=== PATIENT | female | born 1995 | race Caucasian/White ===

== ENCOUNTER 2023-12-19 14:08 | Outpatient (AMB) | payer OTHER, SELFPAY ==
--- NOTE | 2023-12-19 14:09 | A.OFFPC_ITS ---
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 Will order labs. 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 Pt is interested in seeing a therapist, will have team reach out to pt. Denies any SI and HI. Pt has a significant foot hx. She has a hx of pes planovalgus alignment and postural tibial tendon dysfunction bilat (left worse than right). She was seeing ortho and will be going to PT. Pt is describing pain to her bilat feet mostly to 1st MTP joint along plantar aspect. Pt reports erythematous macular lesions to her right upper back (tinea). Will send clotrimazole-betamethasone. [facility] Medical History (Updated 12/19/23 @ 14:33 by ELAYNE Watson) Eczema Depressive disorder Delusional disorder Surgical History (Updated 12/19/23 @ 14:19 by Wilver Martin CMA) History of ankle surgery No pertinent past surgical history Family History (Updated 12/19/23 @ 14:25 by Wilver Martin CMA) Mother Diabetes mellitus Hypertension Father Hypertension Schizophrenia Social History (Updated 12/19/23 @ 14:20 by Wilver Martin CMA) Housing: House Alcohol intake: current Alcohol intake frequency: holidays/special occasions only Alcohol type: wine Patient Tobacco Use Status: Former Tobacco user e-Cigarette/Vaping Use: Never Used service: Yes ([employer]) Current occupational status: employed Cognitive needs: No Hearing needs: No Vision needs: Yes Questionnaire PHQ-9 Over the last 2 weeks, how often have you been bothered by any of the following problems? 1. Little interest or pleasure in doing things: not at all 2. Feeling down, depressed, or hopeless: not at all 3. Trouble falling or staying asleep, or sleeping too much: nearly every day 4. Feeling tired or having little energy: nearly every day 5. Poor appetite or overeating: more than half the days 6. Feeling bad about yourself - or that you are a failure or have let yourself or your family down: not at all 7. Trouble concentrating on things, such as reading the newspaper or watching television: nearly every day 8. Moving or speaking so slowly that other people could have noticed. Or the opposite - being so fidgety or restless that you have been moving around a lot more than usual: more than half the days 9. Thoughts that you would be better off or of hurting yourself in some way: not at all Total score: 13 Depression Screening Interpretation: Positive (denies any SI or HI, will have BH speak with pt today) Depression Screening Follow-up: Existing condition Depression Screening Done: Yes 57077 - PHQ-9 Billing: Yes Source: Developed by Drs. Jaison Mcgowan, Marichuy Barahona, Lazaro Romero and colleagues, with an educational herbert from [employer] Thrive Questionnaire Date Thrive assessed: 12/19/23 I am a: Patient What is your living situation today?: I have a steady place to live Within the past 12 months, did the food you bought not last and you didn't have the money to get more?: Never true Within the past 12 months, did you worry whether your food would run out before you got money to buy more?: Never true Do you have trouble paying for medicines?: No Do you have trouble getting transportation to medical appointments?: No Do you have trouble paying your heating and electricity bill?: No Do you have trouble taking care of your child, family member or friend?: No Do you have trouble with day-to-day activities such as bathing, preparing meals, shopping, managing finances, etc.?: No Are you currently unemployed and looking for a job?: No Are you interested in more education?: No Please select the resources that you would like help with: Education Currently or been in a relationship where the following occur: no concerns reported THRIVE Score: 0 AUDIT C Alcohol Use Questionnaire (AUDIT-C) 1. How often do you have a drink containing alcohol?: Monthly or less 2. How many drinks containing alcohol do you have on a typical day when you are drinking?: 1 or 2 3. How often do you have six or more drinks on one occasion?: Never Total Score: 1 Score Reviewed/Action Taken: Yes MADDY-7 AMB Questionnaire MADDY-7 Date MADDY - 7 assessed: 12/19/23 Feeling nervous, anxious, or on edge: 3 = Nearly every day Not being able to stop or control worryin = Not at all Worrying too much about different things: 0 = Not at all Trouble relaxin = More than half the days Being so restless that it is hard to sit still: 2 = More than half the days Becoming easily annoyed or irritable: 1 = Several days Feeling afraid as if something awful might happen: 0 = Not at all Total MADDY-7 score (0-4 normal; 5-9 mild; 10-14 moderate; 15-21 severe): 8 Source: Developed by Drs. Jaison Mcgowan, Marichuy Barahona, Lazaro Romero and colleagues, with an educational herbert from [employer] MADDY-7 Assessment Billing MADDY-7 Assessment Tool: MADDY-7 Assessment 18479 Review of Systems Const Denies chills and Denies fever(s) Eyes Denies blurry vision ENT Denies vertigo, Denies dizziness and Denies sore throat Card Denies chest pain at rest, Denies chest pain with activity, Denies diaphoresis, Denies dyspnea and Denies dyspnea on exertion Resp Denies cough, Denies dyspnea, Denies dyspnea on exertion and Denies wheezing GI Denies abdominal pain, Denies melena, Denies hematochezia, Denies constipation, Denies diarrhea and Denies loose stools Denies hematuria Musc Denies numbness and Denies tingling Skin/Breast Denies lesions Neuro Denies vertigo, Denies dizziness, Denies numbness and Denies tingling Psych Denies anxiety, Denies depression, Denies homicidal ideation, Denies suicidal ideation and Denies other (substance abuse) Aller/Immun Denies wheezing Physical exam (Primary Care) Vital Signs: Last Vital Signs Pulse 79 12/19/23 14:15 BP 122/74 12/19/23 14:15 Pulse Ox 98 12/19/23 14:15 BMI result Body Mass Index 35.4 Tobacco/Smoking Status: Tobacco use Status Tobacco use date assessed 12/19/23 12/19/23 14:10 Patient Tobacco Use Status Former Tobacco user 12/19/23 14:25 e-Cigarette/Vaping Use Never Used 12/19/23 14:20 PHQ-9: PHQ-9 Score PHQ-9: Total score 13 12/19/23 14:25 Depression Screening Interpretation: Positive (denies any SI or HI, will have BH speak with pt today) Depression Screening Follow-up: Existing condition Thrive Assessment: Date of Thrive Assessment Date Thrive assessed 12/19/23 12/19/23 14:25 Currently or been in a relationship where the following occur: no concerns reported Const General: cooperative Nutritional Appearance: well nourished Orientation/consciousness: patient oriented x3 HENMT Head: Yes normal to inspection, Yes normocephalic and Yes atraumatic Ears: TM's normal bilaterally Eyes General: appearance normal, both eyes and all related structures Alignment and Position: alignment normal and position normal Neck Neck: Yes normal visual inspection and Yes no lymphadenopathy Thyroid: Thyroid normal Resp Effort & Inspection: normal respiratory effort Auscultation: clear to auscultation bilaterally Cardio Rate: regular rate Rhythm: regular rhythm Heart sounds: S1 normal heart sound present, S2 normal heart sound present and no murmurs GI Palpation (GI): Soft to palpation and nontender Auscultation: normal bowel sounds Skin Other: just outside right nare with small papular lesions, dry appearing, erythematous macular lesions to right upper back (tinea) Neuro General: patient oriented x3, moves all extremities, no focal motor deficits and deep tendon reflexes 2+ bilaterally Romberg Test: Negative Psych Appearance: grossly normal Mental Status: mental status grossly normal Speech and movement: Normal speech and movement present Affect: normal affect Attitude: cooperative Thought process: Normal thought process present Thought content: Normal thought content present Insight: Good insight present (Psych) Judgement: Good judgement present (Psych) Assessment and Plan Assessment & Plan (1) Screening for cervical cancer: Code(s): Z12.4 - Encounter for screening for malignant neoplasm of cervix (2) Physical exam: Code(s): Z00.00 - Encounter for general adult medical examination without abnormal findings Orders: Orders Complete Blood Count Auto Diff Today Z00.00 - Encounter for general adult medical examination without abnormal findings UA CC w/rflx Micro + Cult Today Z00.00 - Encounter for general adult medical examination without abnormal findings Comprehensive [place]. 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
[2023-12-19 14:15] VITALS: BP 122/74; PULSE 79; O2SAT 98; BMI 35.4
== END 2023-12-19 15:17 | disposition home or self-care (01) ==
PROVIDERS: PCP Nurse Practitioner Family; Visit Provider Nurse Practitioner Family
DX: Z12.4 Encounter for screening for malignant neoplasm of cervix (principal); Z00.00 Encounter for general adult medical examination without abnormal findings
CPT/HCPCS: 99499

== ENCOUNTER 2024-01-10 12:00 | Outpatient (REF) | payer OTHER, SELFPAY ==
[2024-01-10 13:23] LABS: MANUAL DIFF FLAG NO
[2024-01-10 13:32] LABS: Appearance Urine Clear; Color Urine Yellow; Glucose Urine UA Negative (Negative); Leukocyte Esterase Urine Trace (Negative); Nitrite Urine Negative (Negative); PH 6.5 (5.0-9.0); Specific Gravity - Urine 1.015 (1.005-1.025); UMIC TRIGGER UACC YES; Urine Blood Negative (Negative); Urine Ketones 15 mg/dL (Negative); Urine Protein Negative (Neg-Trace)
[2024-01-10 13:39] LABS: Basophils Percent Auto 0.3 % (0-2); Eosinophils Absolute Auto 0.1 X10*3/uL (0.0-0.4); Eosinophils Percent Auto 0.7 % (0-4); Hematocrit 39.1 % (37.0-47.0); Imm Gran Abs Auto 0.03 X10*3/uL (0.00-0.03); Imm Gran Pct Auto 0.3 % (0.0-0.4); Lymphocytes Absolute Auto 3.4 X10*3/uL (1.2-4.9); Lymphocytes Percent Auto 37.7 % (20-40); Mean Corpuscular HGB Conc 33.2 g/dl (31.0-35.0); Mean Corpuscular Hemoglobin 29.6 pg (27.0-33.0); Mean Corpuscular Volume 89.1 fL (80.0-98.0); Mean Platelet Volume 9.3 fL (9.4-12.3); Monocytes Absolute Auto 0.6 X10*3/uL (0.1-1.2); Monocytes Percent Auto 6.2 % (2-11); Neutrophils Percent Auto 54.8 % (45-73); Platelet Count 334 X10*3/uL (160-400); Red Blood Count 4.39 X10*6/uL (4.20-5.50); Red Cell Distribution Width 12.3 % (11.0-16.0); White Blood Count 9.1 X10*3/uL (4.8-10.8)
[2024-01-10 13:48] LABS: Bacteria Urine 3+ (None Seen); RBC Urine 0-2 /HPF (0-2); UACC Culture Trigger YES
[2024-01-10 14:11] LABS: Alanine Aminotransferase 34 U/L (0-31); Albumin Level 4.4 g/dL (3.5-5.0); Alkaline Phosphatase 88 U/L (39-117); Anion Gap 14 (12-20); Aspartate Amino Transferase 18 U/L (5-31); Bilirubin Total 0.5 mg/dL (0.0-1.0); Blood Urea Nitrogen 11 mg/dL (9-16); Calcium 9.5 mg/dL (8.4-10.2); Carbon Dioxide 27 mmol/L (22-29); Chloride 102 mmol/L (96-108); Cholesterol 161 mg/dL (<200); Estimated Glomerular Filt Rate > 60; Glucose Fasting 82 mg/dL (60-99); HDL Cholesterol 58 mg/dL (>40); LDL Cholesterol Calculated 89 mg/dL (<100); Potassium 3.5 mmol/L (3.3-5.1); Sodium 139 mmol/L (135-145); TSH reflex Free T4 7.24 uIU/mL (0.32-4.0); Total Protein 7.6 g/dL (6.5-8.0); Triglycerides 70 mg/dL (<150)
[2024-01-10 15:26] LABS: Free T4 (Free Thyroxine) 0.68 ng/dL (0.71-1.85)
== END 2024-01-10 12:01 | disposition home or self-care (01) ==
LOC: HO.HMGCLDS 12:00
PROVIDERS: PCP Nurse Practitioner Family; Visit Provider Nurse Practitioner Family
DX: Z00.00 Encounter for general adult medical examination without abnormal findings (principal); R82.90 Unspecified abnormal findings in urine; Z20.2 Contact with and (suspected) exposure to infections with a predominantly sexual mode of transmission
CPT/HCPCS: 36415; 80053; 80061; 81001; 84439; 84443; 85025; 87086

== ENCOUNTER 2024-01-18 08:06 | Outpatient (REF) | payer OTHER, SELFPAY ==
[2024-01-18 11:48] LABS: TSH reflex Free T4 5.45 uIU/mL (0.32-4.0)
[2024-01-19 11:33] LABS: Thyroid Peroxidase Antibodies 328 IU/mL (<9)
== END 2024-01-18 08:07 | disposition home or self-care (01) ==
LOC: HO.HMGCLDS 08:06
PROVIDERS: PCP Nurse Practitioner Family; Visit Provider Nurse Practitioner Family
DX: R94.6 Abnormal results of thyroid function studies (principal)
CPT/HCPCS: 36415; 84439; 84443; 86376

== ENCOUNTER 2024-05-30 09:45 | Outpatient (REF) | payer OTHER, SELFPAY ==
[2024-05-30 13:24] LABS: MANUAL DIFF FLAG NO
[2024-05-30 13:27] LABS: Appearance Urine Cloudy; Color Urine Yellow; Glucose Urine UA Negative (Negative); Leukocyte Esterase Urine Trace (Negative); Nitrite Urine Negative (Negative); PH 7.5 (5.0-9.0); UMIC TRIGGER UACC YES; Urine Blood Negative (Negative); Urine Ketones Negative (Negative); Urine Protein Negative (Neg-Trace)
[2024-05-30 13:30] LABS: Bacteria Urine 1+ (None Seen); Hyaline Casts Urine 0-2 /LPF (0-2); RBC Urine 0-2 /HPF (0-2); Squamous Epithelial Cell Urine >20 /HPF (0-2); UACC Culture Trigger YES
[2024-05-30 13:31] LABS: Basophils Percent Auto 0.5 % (0-2); Eosinophils Absolute Auto 0.1 X10*3/uL (0.0-0.4); Hemoglobin 12.6 g/dl (12.0-16.0); Imm Gran Abs Auto 0.02 X10*3/uL (0.00-0.03); Imm Gran Pct Auto 0.3 % (0.0-0.4); Lymphocytes Absolute Auto 3.1 X10*3/uL (1.2-4.9); Lymphocytes Percent Auto 40.6 % (20-40); Mean Corpuscular HGB Conc 34.1 g/dl (31.0-35.0); Mean Corpuscular Hemoglobin 30.1 pg (27.0-33.0); Mean Corpuscular Volume 88.5 fL (80.0-98.0); Mean Platelet Volume 9.4 fL (9.4-12.3); Monocytes Absolute Auto 0.5 X10*3/uL (0.1-1.2); Monocytes Percent Auto 6.9 % (2-11); Neutrophils Absolute Auto 3.9 x10*3/uL (2.0-8.3); Neutrophils Percent Auto 50.7 % (45-73); Platelet Count 315 X10*3/uL (160-400); Red Blood Count 4.18 X10*6/uL (4.20-5.50); Red Cell Distribution Width 12.8 % (11.0-16.0); White Blood Count 7.7 X10*3/uL (4.8-10.8)
[2024-05-30 14:06] LABS: Alanine Aminotransferase 24 U/L (0-31); Albumin Level 4.3 g/dL (3.5-5.0); Alkaline Phosphatase 86 U/L (39-117); Anion Gap 10 (12-20); Aspartate Amino Transferase 19 U/L (5-31); Bilirubin Total 0.4 mg/dL (0.0-1.0); Blood Urea Nitrogen 15 mg/dL (9-16); Calcium 9.6 mg/dL (8.4-10.2); Carbon Dioxide 27 mmol/L (22-29); Chloride 106 mmol/L (96-108); Cholesterol 132 mg/dL (<200); Estimated Glomerular Filt Rate > 60; Glucose Fasting 84 mg/dL (60-99); HDL Cholesterol 53 mg/dL (>40); LDL Cholesterol Calculated 71 mg/dL (<100); Potassium 4.1 mmol/L (3.3-5.1); Sodium 139 mmol/L (135-145); Total Protein 7.2 g/dL (6.5-8.0); Triglycerides 44 mg/dL (<150)
[2024-05-30 14:13] LABS: TSH reflex Free T4 2.57 uIU/mL (0.32-4.0)
== END 2024-05-30 09:46 | disposition home or self-care (01) ==
LOC: HO.HMGCLDS 09:45
PROVIDERS: PCP Nurse Practitioner Family; Visit Provider Nurse Practitioner Family
DX: Z00.00 Encounter for general adult medical examination without abnormal findings (principal); E03.9 Hypothyroidism, unspecified; R79.89 Other specified abnormal findings of blood chemistry
CPT/HCPCS: 36415; 80053; 80061; 81001; 84443; 85025; 87086

== ENCOUNTER 2024-05-30 12:58 | Outpatient (AMB) | payer OTHER, SELFPAY ==
--- NOTE | 2024-05-30 13:00 | A.OFFPC_ITS ---
Vital Signs 05/30/24 13:01 Height 5 ft 5 in Weight 211 lb BMI 35.1 BP 122/70 Blood Pressure Location Rt brachial Position Sitting Pulse 87 Pulse Source Pulse Oximeter Pulse Oximetry (%) 97 Intake Visit Reasons: thyroid follow up Intake Note: pt is here for thyroid follow up Allergies No Known Allergies Allergy (Verified 12/19/23 14:27) Medication List - Last Reconciled 05/30/24 by ELAYNE Watson cholecalciferol (vitamin D3) 25 mcg PO DAILY clotrimazole-betamethasone 1-0.05 % 1 appl topical BID 2 weeks levothyroxine (Synthroid) 50 mcg PO DAILY Tobacco use date assessed: 12/19/23 Dental Screening Dental Screen Date: 12/19/23 HPI thyroid follow up HPI Details Pt's last TSH was elevated and free T4 was low. Pt is taking levothyroxine 25mcg and has been taking this for 2 months. Will increase levothyroxine from 25mcg to 50mcg (pt would like to switch to name brand Synthroid). Denies fatigue, constipation, and cold intolerance. She does have weight gain and some loss if hair. [facility] Medical History Eczema Depressive disorder Delusional disorder Surgical History History of ankle surgery No pertinent past surgical history Family History Mother Diabetes mellitus Hypertension Father Hypertension Schizophrenia Social History Housing: House Alcohol intake: current Alcohol intake frequency: holidays/special occasions only Alcohol type: wine Patient Tobacco Use Status: Former Tobacco user e-Cigarette/Vaping Use: Never Used service: Yes ([employer]) Current occupational status: employed Cognitive needs: No Hearing needs: No Vision needs: Yes Questionnaire PHQ-9 Over the last 2 weeks, how often have you been bothered by any of the following problems? 1. Little interest or pleasure in doing things: not at all 2. Feeling down, depressed, or hopeless: not at all 3. Trouble falling or staying asleep, or sleeping too much: nearly every day 4. Feeling tired or having little energy: nearly every day 5. Poor appetite or overeating: nearly every day 6. Feeling bad about yourself - or that you are a failure or have let yourself or your family down: not at all 7. Trouble concentrating on things, such as reading the newspaper or watching television: more than half the days 8. Moving or speaking so slowly that other people could have noticed. Or the opposite - being so fidgety or restless that you have been moving around a lot more than usual: not at all 9. Thoughts that you would be better off or of hurting yourself in some way: not at all Total score: 11 Source: Developed by Drs. Jaison Mcgowan, Marichuy Barahona, Lazaro Romero and colleagues, with an educational herbert from [employer] Thrive Questionnaire Date Thrive assessed: 12/19/23 I am a: Patient What is your living situation today?: I have a steady place to live Within the past 12 months, did the food you bought not last and you didn't have the money to get more?: Never true Within the past 12 months, did you worry whether your food would run out before you got money to buy more?: Never true Do you have trouble paying for medicines?: No Do you have trouble getting transportation to medical appointments?: No Do you have trouble paying your heating and electricity bill?: No Do you have trouble taking care of your child, family member or friend?: No Do you have trouble with day-to-day activities such as bathing, preparing meals, shopping, managing finances, etc.?: No Are you currently unemployed and looking for a job?: No Are you interested in more education?: Yes Please select the resources that you would like help with: Education Currently or been in a relationship where the following occur: No concerns reported THRIVE Score: 0 AUDIT C Alcohol Use Questionnaire (AUDIT-C) 1. How often do you have a drink containing alcohol?: Never Total Score: 0 MADDY-7 AMB Questionnaire MADDY-7 Date MADDY - 7 assessed: 12/19/23 Feeling nervous, anxious, or on edge: 1 = Several days Not being able to stop or control worryin = Not at all Worrying too much about different things: 0 = Not at all Trouble relaxin = Not at all Being so restless that it is hard to sit still: 0 = Not at all Becoming easily annoyed or irritable: 0 = Not at all Feeling afraid as if something awful might happen: 0 = Not at all Total MADDY-7 score (0-4 normal; 5-9 mild; 10-14 moderate; 15-21 severe): 1 Source: Developed by Drs. Jaison Mcgowan, Marichuy Barahona, Lazaro Romero and colleagues, with an educational herbert from [employer] Review of Systems Const Reports as per HPI Physical exam (Primary Care) Vital Signs: Last Vital Signs Pulse 87 05/30/24 13:01 BP 122/70 05/30/24 13:01 Pulse Ox 97 05/30/24 13:01 BMI result Body Mass Index 35.1 Tobacco/Smoking Status: Tobacco use Status Tobacco use date assessed 12/19/23 05/30/24 13:01 Patient Tobacco Use Status Former Tobacco user 05/30/24 13:01 e-Cigarette/Vaping Use Never Used 05/30/24 13:01 PHQ-9: PHQ-9 Score PHQ-9: Total score 11 05/30/24 13:01 Thrive Assessment: Date of Thrive Assessment Date Thrive assessed 12/19/23 05/30/24 13:01 Currently or been in a relationship where the following occur: No concerns reported Const General: cooperative Nutritional Appearance: obese Orientation/consciousness: patient oriented x3 Resp Effort & Inspection: normal respiratory effort Auscultation: clear to auscultation bilaterally Cardio Rate: regular rate Rhythm: regular rhythm Heart sounds: S1 normal heart sound present and S2 normal heart sound present Neuro General: patient oriented x3 Psych Appearance: grossly normal Mental Status: mental status grossly normal Speech and movement: Normal speech and movement present Affect: normal affect Attitude: cooperative Thought process: Normal thought process present Thought content: Normal thought content present Insight: Good insight present (Psych) Judgement: Good judgement present (Psych) Assessment and Plan Assessment & Plan (1) Hypothyroid: Code(s): E03.9 - Hypothyroidism, unspecified Plan The patient agreed to the use of a medical record specialist for this encounter. Scribed for ZINA Freeman-CALLUM by Ana Harper, medical record specialist, on 05/30/2024 at 13:20 EST. Medications: New levothyroxine (Synthroid) brand name only please (Synthroid) 50 mcg PO DAILY 90 tabs 0RF levothyroxine (Synthroid) brand name only please (Synthroid) 50 mcg PO DAILY 90 tabs 0RF Discontinued levothyroxine Discontinued Reason: Doctor's Order 25 mcg PO DAILY 90 tabs 0RF Coding Level of Care Code Est Pt Level 3 (53242) Diagnoses Hypothyroid E03.9
[2024-05-30 13:01] VITALS: BP 122/70; PULSE 87; O2SAT 97; BMI 35.1
== END 2024-05-30 13:33 | disposition home or self-care (01) ==
PROVIDERS: PCP Nurse Practitioner Family; Visit Provider Nurse Practitioner Family
DX: E03.9 Hypothyroidism, unspecified (principal)
CPT/HCPCS: 99213

== ENCOUNTER 2024-12-03 12:58 | Outpatient (AMB) | payer OTHER, SELFPAY ==
--- NOTE | 2024-12-03 13:11 | A.OFFPC_ITS ---
Vital Signs 12/03/24 13:12 Height 5 ft 5 in Weight 208 lb BMI 34.6 BP 122/80 Blood Pressure Location Lt brachial Position Sitting Pulse 78 Pulse Source Pulse Oximeter Pulse Oximetry (%) 98 Intake Visit Reasons: 6M F/U Allergies No Known Allergies Allergy (Verified 12/03/24 13:12) Medication List - Last Reconciled 12/03/24 by Renan Howell, CHANGE MANAGER- cholecalciferol (vitamin D3) 25 mcg PO DAILY clotrimazole-betamethasone 1-0.05 % 1 appl topical BID 2 weeks levothyroxine (Synthroid) 50 mcg PO DAILY Tobacco use date assessed: 12/03/24 Dental Screening Dental Screen Date: 12/03/24 Did you have a dental visit in the last 12 months?: Yes Did you have a dental problem in the last 6 months where you did not have access to dental care?: No Was dental information given to patient?: Patient has dentist HPI 6M F/U HPI Details Chief Complaint The patient presents for follow-up of hypothyroidism and concerns regarding worsening dermatological lesions during . History of Present Illness The patient is a 29-year-old female presenting for follow-up related to her hypothyroid condition, monitored with levothyroxine 50 mg daily, with levels managed by checking thyroid-stimulating hormone (TSH) indicators. She reports no associated symptoms such as hair loss or sluggishness at this time, indicating stable management. She is currently , which adds to the complexity of her endocrine management requiring vigilant monitoring of TSH levels to avert maternal or complications related to thyroid function. In association with her , the patient reports progressive worsening of vesicular/papular pustule-type lesions localizing externally around her nares and mouth. This onset seems to be aggravated by her current . A dermatological referral is advised to address this issue, considering it as a -exacerbated dermatological concern. Social History Health Maintenance Review of Systems - Integumentary: Reports vesicular/papul ar pustule-type lesions along the nares and mouth region (crease). Physical Exam General: Cooperative, healthy appearing, comfortable, no acute distress and well developed Orientation: Patient oriented x3 Limitations: No limitations Head: Normal to inspection Ears: Hearing grossly normal bilaterally Nose: Normal external nose present Face and sinus: Normal facial exam Eyes: Appearance normal, both eyes and all related structures Neck: Normal visual inspection and Yes full ROM Respiratory: Normal respiratory effort and able to speak in complete sentences. Clear to auscultation bilaterally Cardiovascular: Regular rate and rhythm. Normal S1 and S2 GI: Normal to inspection. Soft to palpation and nontender Skin: Vesicular/papular pustule type lesions noted along the mouth region and just outside of the nares (crease) Neuro: Patient oriented x3 Extremities: Normal to inspection Results Plan We will continue monitoring the patient's TSH levels as part of the comprehensive management of hypothyroidism during , ensuring maintenance of euthyroid status. A dermatological referral is initiated for further assessment and management of the vesicular and papular pustule-type lesions that appear to have worsened during , providing specialized care to address this concern. Discussion Notes I have reviewed with the patient the significance of monitoring thyroid function during , ensuring that both maternal and health is protected through regular TSH assessment and any necessary adjustments in hormone supplementation. The potential complications arising from unaddressed thyroid issues in were discussed, emphasizing the importance of vigilance in management. Regarding the dermatological lesions observed, I have discussed the need for a dermatological referral to appropriately evaluate and manage these lesions that have worsened with her , ensuring early intervention and solution. The patient expressed understanding and is agreeable to the proposed approach to management. Patient Instructions - Continue taking levothyroxine 50 mg as prescribed. - Schedule an appointment for thyroid-st imulating hormone (TSH) testing as discussed. - Follow through with the dermatology re ferral for further evaluation of skin lesions. - Report any new symptoms or significant changes in current symptoms immediately. [facility] Medical History Eczema Depressive disorder Delusional disorder Surgical History History of ankle surgery No pertinent past surgical history Family History Mother Diabetes mellitus Hypertension Father Hypertension Schizophrenia Social History Housing: House Alcohol intake: current Alcohol intake frequency: holidays/special occasions only Alcohol type: wine Patient Tobacco Use Status: Former Tobacco user e-Cigarette/Vaping Use: Never Used service: Yes ([employer]) Current occupational status: employed Cognitive needs: No Hearing needs: No Vision needs: Yes Questionnaire PHQ-9 Over the last 2 weeks, how often have you been bothered by any of the following problems? 1. Little interest or pleasure in doing things: not at all 2. Feeling down, depressed, or hopeless: not at all 3. Trouble falling or staying asleep, or sleeping too much: several days 4. Feeling tired or having little energy: more than half the days 5. Poor appetite or overeating: more than half the days 6. Feeling bad about yourself - or that you are a failure or have let yourself or your family down: not at all 7. Trouble concentrating on things, such as reading the newspaper or watching television: not at all 8. Moving or speaking so slowly that other people could have noticed. Or the opposite - being so fidgety or restless that you have been moving around a lot more than usual: not at all 9. Thoughts that you would be better off or of hurting yourself in some way: not at all Total score: 5 Depression Screening Interpretation: Negative Depression Screening Done: Yes 68948 - PHQ-9 Billing: Yes Source: Developed by Drs. Jaison Mcgowan, Marichuy Barahona, Lazaro Romero and colleagues, with an educational herbert from [employer]. Thrive Questionnaire Date Thrive assessed: 12/03/24 I am a: Patient What is your living situation today?: I have a steady place to live Within the past 12 months, did the food you bought not last and you didn't have the money to get more?: Never true Within the past 12 months, did you worry whether your food would run out before you got money to buy more?: Never true Do you have trouble paying for medicines?: No Do you have trouble getting transportation to medical appointments?: No Do you have trouble paying your heating and electricity bill?: No Do you have trouble taking care of your child, family member or friend?: No Do you have trouble with day-to-day activities such as bathing, preparing meals, shopping, managing finances, etc.?: No Are you currently unemployed and looking for a job?: No Are you interested in more education?: Yes Please select the resources that you would like help with: Education Currently or been in a relationship where the following occur: No concerns reported THRIVE Score: 0 AUDIT C Alcohol Use Questionnaire (AUDIT-C) 1. How often do you have a drink containing alcohol?: Never 3. How often do you have six or more drinks on one occasion?: Never Total Score: 0 Score Reviewed/Action Taken: Yes MADDY-7 AMB Questionnaire MADDY-7 Date MADDY - 7 assessed: 12/03/24 Feeling nervous, anxious, or on edge: 0 = Not at all Not being able to stop or control worryin = Not at all Worrying too much about different things: 0 = Not at all Trouble relaxin = Not at all Being so restless that it is hard to sit still: 0 = Not at all Becoming easily annoyed or irritable: 0 = Not at all Feeling afraid as if something awful might happen: 0 = Not at all Total MADDY-7 score (0-4 normal; 5-9 mild; 10-14 moderate; 15-21 severe): 0 Source: Developed by Drs. Jaison Mcgowan, Marichuy Barahona, Lazaro Romero and colleagues, with an educational herbert from [employer]. MADDY-7 Assessment Billing MADDY-7 Assessment Tool: MADDY-7 Assessment 02932 Physical exam (Primary Care) Vital Signs: Last Vital Signs Pulse 78 12/03/24 13:12 BP 122/80 12/03/24 13:12 Pulse Ox 98 12/03/24 13:12 BMI result Body Mass Index 34.6 Tobacco/Smoking Status: Tobacco use Status Tobacco use date assessed 12/03/24 12/03/24 13:13 Patient Tobacco Use Status Former Tobacco user 12/03/24 13:13 e-Cigarette/Vaping Use Never Used 12/03/24 13:13 PHQ-9: PHQ-9 Score PHQ-9: Total score 5 12/03/24 13:23 Depression Screening Interpretation: Negative Thrive Assessment: Date of Thrive Assessment Date Thrive assessed 12/03/24 12/03/24 13:13 Currently or been in a relationship where the following occur: No concerns reported Coding Level of Care Code Est Pt Level 3 (02677) Diagnoses Hypothyroid E03.9 Facial lesion L98.9 Additional Codes MADDY-7 Assessment Billing - MADDY-7 Assessment Tool: MADDY-7 Assessment 08702 ([id number]) PHQ-9 - 26557 - PHQ-9 Billing: Yes ([id number]) Assessment & Plan Assessment & Plan (1) Hypothyroid: Code(s): E03.9 - Hypothyroidism, unspecified Category: Medical (2) Facial lesion: Code(s): L98.9 - Disorder of the skin and subcutaneous tissue, unspecified Category: Medical Plan . Orders: Orders TSH reflex Free T4 Today E03.9 - Hypothyroidism, unspecified UA CC w/rflx Micro + Cult Today E03.9 - Hypothyroidism, unspecified Lipid Panel Today E03.9 - Hypothyroidism, unspecified Complete Blood Count Auto Diff Today E03.9 - Hypothyroidism, unspecified Comprehensive [place]. Panel Fast Today E03.9 - Hypothyroidism, unspecified Referrals Dermatology Referral L98.9 - Disorder of the skin and subcutaneous tissue, unspecified
[2024-12-03 13:12] VITALS: BP 122/80; PULSE 78; O2SAT 98; BMI 34.6
--- OUTSIDE RECORDS SUMMARY | 2024-12-03 15:13 | XMS_ITS | Clinical Summary ---
Author Organization [facility] Address [address] [place] [address] Phone Care Team Providers Care Special Technical Operations Officer Name Role Phone Sadie Mitchell MD Primary Care Provider [phone] Allergies No known active allergies Medications vitamin iron fum-folic acid 27-0.8 mg per tablet Take 1 tablet by mouth 1 (one) time each day. 90 tablet 3 12/03/2024 Active levothyroxine (Synthroid) 50 mcg tabletIndication s:hypothyroidism Take 1 tablet (50 mcg total) by mouth 1 (one) time each day before breakfast. Active Active Problems Problem Noted Date Diagnosed Date Adult hypothyroidism 12/03/2024 Estimated Date of Delivery Comme nts Yes 06/04/2025 Encounters Date Type Department Care Team Description 12/03/2024 9:00 AM EST Office Visit Obstetrics & Gynecology - [address] [phone] Karen Haynes CNM test positive (Primary Dx); Adult hypothyroidism from Last 3 Months Immunizations Name Administration Dates Next Due Influenza trivalent, 0.5mL, preservative free (Fluarix; FluLaval; Fluzone) ages 6mo and older (Afluria) 3 years and older 07/11/2024 Surgical History Surgery Date Site/Laterality Comments ANKLE SURGERY Right Medical History Medical History Date Comments Thyroid disorder Social History Tobacco Use Types Packs/Day Years Used Date Smoking Tobacco: Never Smokeless Tobacco: Never Tobacco Cessation:Counseling Given: Not Answered Alcohol Use Standard Drinks/Week Comments Not Currently 0 (1 standard drink = 0.6 oz pur e alcohol) socially Estimated Date of Delivery Comme nts Yes 06/04/2025 Sex and Gender Information Value Date Recorded Sex Assigned at Not on file Legal Sex Female 8:51 AM EST Gender Identity Not on file Sexual Orientation Not on file Obstetrics History Para Term AB IAB SAB Ectopic Multiple Livin g Live Births 3 1 1 1 1 Date Outcome GA Total Labor Labor/2nd/3rd Weight Sex Type Anes PTL Martha A1 A5 Name Clin 012 Term 3572 g (126 oz) M Vag-S pont Y Living [place] [place] Last Filed Vital Signs Vital Sign Reading Time Taken Comments Blood Pressure 113/74 12/03/2024 9:09 AM EST Pulse 69 12/03/2024 9:09 AM EST Temperature - - Respiratory Rate - - Oxygen Saturation - - Inhaled Oxygen Concentration - - Weight 93.8 kg (206 lb 12.8 oz) 12/03/2024 9:09 AM EST Height 165.1 cm (5' 5 ) 12/03/2024 9:09 AM EST Body Mass Index 34.41 12/03/2024 9:09 AM EST Plan of Treatment Upcoming Encounters Date Type Department Care Team (Late st Contact Info) Description 12/06/2024 2:00 PM EST Clinical Support Obstetrics & Gynecology - [address] [phone] 12/26/2024 3:00 PM EDT Initial Obstetrics & Gynecology [address] [phone] Karen Haynes, [facility] [address] [place] [address] Health Maintenance Due Date Last Done Comments DTaP,Tdap,and Td Vaccines (1 - Tdap) 2012 Hepatitis B Vaccines (1 of 3 - 19+ 3-dose series) 2012 Cervical Cancer Screening: P ap Smear 2014 COVID-19 Vaccine ( - 2023-2 5 season) 2024 Depression Screening 11/05/2024 HIV Screening 11/05/2024 Hepatitis C Screening 11/05/2024 Social Influencers of Health Screening 11/05/2024 Influenza Vaccine Completed 07/11/2024 HIB Vaccines Aged Out No longer eligi ble based on patient's age to complete this topic HPV Vaccines Aged Out No longer eligi ble based on patient's age to complete this topic Hepatitis A Vaccines Aged Out No long er eligible based on patient's age to complete this topic IPV Vaccines Aged Out No longer eligi ble based on patient's age to complete this topic Meningococcal ACWY Vaccine Aged Out N o longer eligible based on patient's age to complete this topic Meningococcal B Vacine Aged Out No lo nger eligible based on patient's age to complete this topic Pneumococcal Vaccine: Pediat rics (0 to 5 Years) and At-Risk Patients (6 to 64 Years) Aged Out No longer eligi ble based on patient's age to complete this topic RSV Immunization Patients Un day 20 months Aged Out No longer eligible b ased on patient's age to complete this topic Insurance [facility] on file Care Teams Special Technical Operations Officer Relationship Specialty Start Date End Date Sadie Mitchell MD [address] [place] [address] PCP - General Internal Medicine 11/13/24
--- OUTSIDE RECORDS SUMMARY | 2024-12-03 15:13 | XMS_ITS | Encounter Summary ---
Author Organization [facility] Address [address] [place] [address] Care Team Providers Care Submarine Worker Name Role Phone Sadie Mitchell MD Primary Care Provider [phone] Reason for Visit * Reason Comments Confirmation New patient Encounter Details Date Type Department Care Team (Latest Contact Info) Description 12/03/2024 9:00 AM EST Office Visit Obstetrics & Gynecology - [address] [phone] Karen Haynes, [facility] [address] [place] [id number] test positive (Primary Dx); Adult hypothyroidism Social History Tobacco Use Types Packs/Day Years [...] on file Sexual Orientation Not on file documented as of this encounter Last Filed Vital Signs Vital Sign Reading [...] Mass Index 34.41 12/03/2024 9:09 AM EST documented in this encounter Patient Instructions * Attachments The following attachments cannot be sent through Care Everywhere. * : Visits: General Info (Citizen Of [place]) documented in this encounter Ordered Prescriptions Prescription Sig Dispense Quantity Refills Last Filled Start Date End Date vitamin iron fum-folic acid 27-0.8 mg per tablet Take 1 tablet by mouth 1 (one) time each day. 90 tablet 3 12/03/2024 12/03/2025 documented in this encounter Progress Notes * Ike West [place] - 12/03/2024 9:00 AM EST New pt here to establish ob care, confirmed at [facility] [place] [place] 10/08/24 LMP 08/28/24 OSCAR: 06/04/2025 * Karen Haynes CNM - 12/03/2024 9:00 AM EST Chief Complaint Patient presents with Confirmation New patient Rosita Sevilla 1995 29 y.o. HPI: Pt is here to confirm . She would like to deliver @ [facility]. Here first child was born at [facility] [place] [place] w/o complications, She has a + home test. Was also seen at [facility] [place] [place] in 10/08/2024 An ultrasound confirmed her OSCAR 06/04/2025. LMP Patient's last menstrual period was 08/28/2024. . FOB is present involved. She denies any VB/pelvic pain She does report hx of thyroid disorder but stopped her medication with her + HCG because she did not know if it was okay to continue. She has been prescribed 50mcg by her PCP and is scheduled to see him this week. ROS Review of Systems GENERAL: No malaise, significant weight loss or fever RESPIRATORY: No cough, wheezing or shortness of breath CARDIOVASCULAR: No chest pain, leg swelling or palpitations BREAST: no lumps, discharge, pain or change in skin GI: No abdominal discomfort, blood in stools or black stools/ negative for change in bowel habits. : No dysuria, frequency or incontinence DOCK OR PIER LABORER: See HPI MUSCULOSKELETAL: No joint pain or swelling, back pain, or muscle pain. SKIN: No lesions, rash or itching PSYCH: No sleep disturbance, mood disorder or recent psychosocial stressors. HEMATOLOGY/LYMPHOLOGY No prolonged bleeding, easy bruisability or swollen nodes Past Medical History Past Medical History: Diagnosis Date Thyroid disorder OB HIstory OB History Para Term AB Living 3 1 1 1 SAB IAB Ectopic Multiple Live Births 1 # Outcome Date GA Lbr Maxime/2nd Weight Sex Type Anes PTL Lv 3 Current 2 Term 04/29/12 3572 g (126 oz) M Vag-Spont Y MARY 1 Past Surgical History Past Surgical History: Procedure Laterality Date ANKLE SURGERY Right Family Medical History No family history on file. Medications: No medication comments found. Current Outpatient Medications on File Prior to Visit Medication Sig Dispense Refill levothyroxine (Synthroid) 50 mcg tablet Take 1 tablet (50 mcg total) by mouth 1 (one) time each daybefore breakfast. No current facility-administered medications on file prior to visit. Allergies: No Known Allergies Vitals: 12/03/24 0909 BP: 113/74 Pulse: 69 Weight: 93.8 kg (206 lb 12.8 oz) Height: 1.651 m (65 ) PHYSICAL BMI Body mass index is 34.41 kg/m??. APPEARANCE: Alert and in no acute distress, healthy, cooperative LUNG: Assessment: No increased work of breathing or signs of respiratory distress DOCK OR PIER LABORER: + FHT @ 160 bpm NEURO: Awake, alert and oriented x 3 SKIN: Skin color, texture, turgor normal. No rashes or lesions. IMPRESSION Encounter Diagnoses Name Primary? test positive Yes Adult hypothyroidism PLAN: Educated on early , warning signs to report and call system Reviewed 1st trimester danger signs including reassurance about light spotting or mild cramping; however, if light to heavy bleeding occurs that is on going without wiping, dark/bright red as well asmoderate to severe cramping with/without bleeding that affects daily activity needs further evaluation to contact the practice or report to ER immediately. Stressed importance of Euthyroid in and cont current med regime and follow up with prescriber. Will have MFM consult at appropriate time Start/ Cont vitamins Schedule follow up appts for Nurse OB work up and Provider Physical Written literature regarding visits 20 minutes was spent with this patient. More than 50% of time spent in counseling and/or coordination of care activities. Karen Haynes CNM documented in this encounter Plan of Treatment Upcoming Encounters Date Type Department Care Team (Late st Contact Info) Description 12/06/2024 2:00 PM EST Clinical Support Obstetrics & Gynecology - [address] [phone] 12/26/2024 3:00 PM EDT Initial Obstetrics & Gynecology - [address] [phone] Karen Haynes, CNM [address] [place] [address] documented as of this encounter Visit Diagnoses Diagnosis test positive- Primary examination or test, positive result Adult hypothyroidism Unspecified hypothyroidism documented in this encounter Historical Medications * This list may reflect changes made after this encounter. levothyroxine (Synthroid) 50 mcg tabletIndications :hypothyroidism Take 1 tablet (50 mcg total) by mouth 1 (one) time each day before breakfast. added in this encounter Care Teams Submarine Worker Relationship Specialty Start Date End Date Sadie Mitchell MD [address] [place] [address] PCP - General Internal Medicine 11/13/24 documented as of this encounter
== END 2024-12-03 14:21 | disposition home or self-care (01) ==
PROVIDERS: PCP Nurse Practitioner Family; Visit Provider Nurse Practitioner Family
DX: E03.9 Hypothyroidism, unspecified (principal); L98.9 Disorder of the skin and subcutaneous tissue, unspecified

== ENCOUNTER → 2024-12-03 12:58 | Outpatient (BNVA) | payer OTHER, SELFPAY | PROVIDERS: PCP Nurse Practitioner Family; Visit Provider Nurse Practitioner Family | DX: E03.9 Hypothyroidism, unspecified (principal); L98.9 Disorder of the skin and subcutaneous tissue, unspecified | CPT/HCPCS: 96127; 99212 ==

== ENCOUNTER 2025-01-21 09:50 | Outpatient (REF) | payer OTHER, SELFPAY ==
--- OUTSIDE RECORDS SUMMARY | 2025-01-21 09:52 | XMS_ITS | Continuity of Care Document ---
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 It does not include entries that were removed or entered in error. Problem Status Onset Date Problem Type Date of Resolution Comments Source Encounter for administrative examinations, unspecified Active Condition DoD Vitamin D deficiency, unspecified Active Condition DoD Pain in left hip Active Condition DoD Allergies, Adverse Reactions, Alerts Combined list of allergies from Department of Defense and Veterans Affairs facilities. It does not include entries that were removed or entered in error. Substance Category Reaction Severity Reaction type Status Date Reported Comments Source No Known Allergies Drug allergy (disorder) active 11/02/2019 [facility] Immunizations Combined list of available immunizations from the Department of Defense and Veterans Affairs facilities. Immunization Series Date Given Administered By Site Reaction Lot Number CVX Code Drug Head Of Commission Department Status Comments Source poliovirus vaccine, inactivated 2019 [id number] 10 sanofi pasteur complet ed polioviru s vaccine, inactivat ed 10/11/19 Given Ambulat ory Pharmac y adenovirus vaccine, live 2019 [id number] 143 [employer]eva [employer] ls complet ed adenoviru s vaccine, live 10/11/19 Given Ambulat ory Pharmac y tetanus, diphtheria, acellular pertu is 2019 [id number] 115 GlaxoSmithK[employer] ne complet ed tetanus, diphtheri a, acellular pertussis 10/11/19 Given Ambulat ory Pharmac y meningococcal A,C,Y,W-135 (MCV4P) 2019 [id number] 114 sanofi pasteur complet ed meningoco ccal A,C,Y,W-1 35 (MCV4P) 10/11/19 Given Ambulat ory Pharmac y poliovirus vaccine, inactivated 2019 [id number] 10 sanofi pasteur complet ed polioviru s vaccine, inactivat ed 10/11/19 Given Ambulat ory Pharmac y adenovirus vaccine, live 2019 [id number] 8 143 Teva Pharm[employer] ls complet ed adenoviru s vaccine, live 10/11/19 Given Ambulat ory Pharmac y tetanus, diphtheria, acellular pertu is 2019 [id number] 115 [employer] complet ed tetanus, diphtheri a, acellular pertussis 10/11/19 Given Ambulat ory Pharmac y meningococcal A,C,Y,W-135 (MCV4P) 2019 [id number] 114 sanofi pasteur complet ed meningoco ccal A,C,Y,W-1 35 (MCV4P) 10/11/19 Given Ambulat ory Pharmac y poliovirus vaccine, inactivated 1 2019 [id number] 10 Sanofi Pasteur (PMC) complet ed polioviru s vaccine, inactivat ed DoD meningococcal polysaccharid e (groups A, C, Y and W-135) diphtheria toxoid conjugate vaccine (MCV4P) 1 2019 [id number] 114 Sanofi Pasteur (PMC) complet ed meningoco ccal polysacch aride (groups A, C, Y and W-135) diphtheri a toxoid conjugate vaccine (MCV4P) DoD tetanus toxoid, reduced diphtheria toxoid, and acellular pertu is vaccine, adsorbed 1 2019 [id number] 115 [facility] ([facility]) complet ed tetanus toxoid, reduced diphtheri a toxoid, and acellular pertussis vaccine, adsorbed DoD Adenovirus, type 4 and type 7, live, oral 1 2019 [id number] 143 [facility] (BRR) complet ed Adenoviru s, type 4 and type 7, live, oral DoD Influenza, injectable, Madin Laila Canine Kidney, quadrivalent with preservative 1 2019 [id number] 186 Seqirus (SEQ) complet ed Influenza , injectabl e, Madin Laila Canine Kidney, quadrival ent with preservat yogi DoD measles, mumps and rubella virus vaccine 1 2019 UNK 03 Unknown (UNK) Not Given measles, mumps and rubella virus vaccine DoD varicella virus vaccine 1 2019 UNK 21 Unknown (UNK) Not Given varicella virus vaccine DoD hepatitis B vaccine, adult dosage 2019 UNK 43 Unknown (UNK) Not Given hepatitis B vaccine, adult dosage DoD hepatitis A vaccine, adult dosage 1 2019 UNK 52 Unknown (UNK) Not Given hepatitis A vaccine, adult dosage DoD Encounters Combined list of: 1) Encounters from Department of Veterans Affairs facilities going backup to the last 18 months, not all VA inpatient encounters are included; 2) Encounters from the Department of Defense facilities going backup to 280 months. Location Location Details Encounter Type Encounter Number Reason For Visit Attending Provider ADM Date DC Date Status Disposition Source [facility](IEP Optometry ) OUTPATIENT [id number] LESLIE KERNS 10/12 Released w/o Limitations [facility](I EP Optomet ry) [facility](IEP Primary Care) OUTPATIENT [id number] Notes Entered by: LEROY NARANJO 24 Oct 2019 1128 ------- ------- ------- ------- -- IET LYN ARREOLA 10/24 Released w/o Limitations [facility](I EP Primary Care) [facility] [id number] Left Knee Pain DASHA IRIZARRY M 10/29 Released with Work/Duty Limitations [facility](T MC Physica l Therapy ) [facility] [place] [id number] Hip pain/ knee painX1 week VICTORINA, SUSHILADA R 11/02 Released with Work/Duty Limitations [facility](T MC Ambulat ory) [facility](C Ambulator y) OUTPATIENT [id number] hip f/u VICTORINA, LETRENDA R 11/05 Released with Work/Duty Limitations [facility](T MC Ambulat ory) [facility] [place]PAT[place] [id number] Bilater al Lower Leg Swellin g / Pain TRAV IRIZARRYO M 11/13 Released with Work/Duty Limitations [facility](T MC Physica l Therapy ) [facility] [place]PAT[place] [id number] Rehab Low Impact Cardio TRAV IRIZARRYO M 11/14 Released with Work/Duty Limitations [facility](T MC Physica l Therapy ) [facility] [place]PAT[place] [id number] Bilater al Knee Rehab Low Impact Cardio JUAN C, DASHA M 11/14 Released with Work/Duty Limitations [facility] Physica l Therapy ) [facility] [place]) OUTPATIENT [id number] INJUED KIM HEAD CONGEST KIRSTEN SHAH 11/16 Released with Work/Duty Limitations [facility](T Ambulat ory) [facility] [place] OUTPATIENT [id number] fx anthony/kne es f/u ISABELLA PRAJAPATI 11/22 Immediate Referral [facility] Group([facility] Ambulat ory) [facility] [place] OUTPATIENT [id number] f/u knee/Hi p,ankle DOLLY DORAN 12/16 Released with Work/Duty Limitations [facility](T Ambulat ory) [facility] [place]) [place]PATIENT [id number] DOLLY DORAN 12/23 Released w/o Limitations [facility] Ambulat ory) [facility]([address]) OUTPATIENT [id number] Notes Entered by: RANI JACK 10 Jan 2020 0709 ------- ------- ------- ------- -- hip pain SCOTT MEJIA 01/09 Released w/o Limitations [facility]([address]) [facility]([address]) OUTPATIENT [id number] [phone] left hip pain LUIS POND 01/10 Released with Work/Duty Limitations [facility]([address]) [facility]([address]) OUTPATIENT [id number] [phone] MRI [facility] LUIS POND 01/21 Released with Work/Duty Limitations [facility]([address]) [facility]) TELE CONSULT [id number] Notes Entered by: Jose POND 25 Jan 2020 1456 ------- ------- ------- ------- -- Vitamin D deficie LUIS Lane 01/24 [facility]) [facility]([address]) OUTPATIENT [id number] Hip Pain SALTY LUIS Lo 02/27 Released with Work/Duty Limitations [facility]) [facility]([address]) OUTPATIENT [id number] Hip Pain SALTY LUIS Lo 03/03 Released with Work/Duty Limitations [facility]) [facility] [place] OUTPATIENT [id number] Notes Entered by: ANALI HACKETT 04 Mar 2020 0601 ------- ------- ------- ------- -- hip JAYMIE CORRALES 03/04 Released with Work/Duty Limitations [facility] Physica l Therapy [place]) Procedures Combined list of: 1) Procedures from Department of Veterans Affairs facilities going back up to thelast 18 months, not all VA non-surgical procedures are included; 2) All procedures from the Department of Defense facilities. Procedure Procedure Type Code Date Perfomer Comments Sourc e No data available for this section Ambulato ry Pharmacy Ophthalmological New Patient Start Intermediate Level Care Ophthalmological New Patient Start Intermediate Level Care 26521 [place]ATMAN Decision [facility] Fitting Monofocals (Not For Aphakia) [facility] Fitting Monofocals (Not For Aphakia) 40083 LURDES SRINI I [employer] Determination Of Refractive State Determination Of Refractive State 30129 LURDES SRINI I [employer] Immunization Administration One Vaccine Immunization Administration One Vaccine 37604 [place], LYN [employer] Immunization Administration Each Additional Vaccine Immunization Administration Each Additional Vaccine 25410 [place], Etacts Vaccines Viral Polio, Inactivated (Salk) Vaccines Viral Polio, Inactivated (Salk) 33871 [facility], LYN [facility] Tdap Vaccine Tdap Vaccine 61158 [facility], LYN [facility] Immunization Admin Intranasal / Oral Each Additional Vaccine Immunization Admin Intranasal / Oral Each Additional Vaccine 80874 [facility], [facility] Vaccines Adenovirus Type 4 Live, For Oral Use Vaccines Adenovirus Type 4 Live, For Oral Use 45277 [facility], [facility] Vaccines Adenovirus Type 7 Live, For Oral Use Vaccines Adenovirus Type 7 Live, For Oral Use 57008 [facility], LYN [facility] Exercises A isted Exercises For ROM Exercises Assisted Exercises For ROM 93266 DASHA IRIZARRY [facility] Physical Medicine - Group Physical Therapy jose antonio Physical Medicine - Group Physical Therapy Session [id number] DASHA IRIZARRY [facility] Crutches, underarm, other than wood, adjustable or fixed, pair, with pads, tips and handgrips DOLLY DORAN [facility] Waiver services; not otherwise specified (NOS) LUIS POND [facility] PT A e ment [employer] PT Assessment [employer] Training [id number] JAYMIE CORRALES [facility] CRUTCHES UNDERARM, OTHER THAN WOOD, ADJUSTABLE OR FIXED, PAIR, WITH PADS, TIPS AND HANDGRIPS [facility] THERAPEUTIC PROCEDURE(S), GROUP (2 OR MORE INDIVIDUALS) [facility] THERAPEUTIC PROCEDURE(S), GROUP (2 OR MORE INDIVIDUALS) [facility] THERAPEUTIC PROCEDURE(S), GROUP (2 OR MORE INDIVIDUALS) [facility] CRUTCHES UNDERARM, OTHER THAN WOOD, ADJUSTABLE OR FIXED, PAIR, WITH PADS, TIPS AND HANDGRIPS [facility] THERAPEUTIC PROCEDURE, 1 OR MORE AREAS, EACH 15 MINUTES; THERAPEUTIC EXERCISES TO DEVELOP STRENGTH AND ENDURANCE, RANGE OF MOTION AND FLEXIBILITY [facility] INFLUENZA VIRUS VACCINE, QUADRIVALENT (IIV4), SPLIT VIRUS, PRESERVATIVE FREE, 0.5 ML DOSAGE, FOR INTRAMUSCULAR USE [facility] DETERMINATION OF REFRACTIVE STATE [facility] EAR MOLD/INSERT, NOT DISPOSABLE, ANY TYPE [facility] THERAPEUTIC ACTIVITIES, DIRECT (ONE-ON-ONE) PATIENT CONTACT (USE OF DYNAMIC ACTIVITIES TO IMPROVE FUNCTIONAL PERFORMANCE), EACH 15 MINUTES DoD WAIVER SERVICES; NOT OTHERWISE SPECIFIED (NOS) DoD WAIVER SERVICES; NOT OTHERWISE SPECIFIED (NOS) 04/21/2 020 DoD WAIVER SERVICES; NOT OTHERWISE SPECIFIED (NOS) 020 DoD Social History Combined list of available smoking, tobacco, and other social history from Department of Defense and Veterans Affairs facilities. Social History Type Response Date Comment Sourc e Sex Representation Female (finding) 06/23/2020 Unknown Organization Sexual Orientation Ambula tory Pharmacy Gender identity Ambulator y Pharmacy This section is an empty social history section. DoD Assessment and Plan Combined list of future care activities from Department of Defense and Veterans Affairs facilities (e.g., assessment and plan notes, appointments, orders, and referrals). Additional future care activities may be listed in the Plan of Care section. Result Assessment and Plan Date Source Assessment and Plan No data available for this section 01/21/2025 Ambulatory Pharmacy Functional Status Combined list of recent functional and cognitive assessments recorded at Department of Defense and Veterans Affairs ([facility]).[facility] Functional Mora Measurement (FIM) Scale: 1 = Total Assistance (Subject = 0% +), 2 = Maximal Assistance (Subject = 25% +), 3 = Moderate Assistance (Subject = 50% +), 4 = Minimal Assistance (Subject = 75% +), 5 = Supervision, 6 = Modified Mora (Device), 7 = Complete Mora (Timely, Safely). Assessment Date/Time Source Assessment Type Assessment Skill Assessment Score Assessment Details No data available for this section
--- OUTSIDE RECORDS SUMMARY | 2025-01-21 09:52 | XMS_ITS | Data Portability ---
Author Organization RIGOBERTO Abe Bacon [facility], [facility] Address [address] [place] [address] Assessment Encounter Date Assessment Date Assessment LastModified by Organization Details LastModified Time 01/18/2024 01/18/2024 Improved R ankle ROM compared to last visit. Fair inversion strength. TTP along plantar fascia. Continue to progress R ankle/foot mobility, strength gait mechanics and functional mobility. 2 x week for 8 weeks [email or web address] Not available 01/19/2024 10:35:09 01/25/2024 01/25/2024 Improved R ankle ROM compared to last visit. Fair inversion strength. TTP along plantar fascia. Continue to progress R ankle/foot mobility, strength gait mechanics and functional mobility. 2 x week for 8 weeks [email or web address] Not available 01/25/2024 20:01:21 02/08/2024 02/08/2024 Tight proximal plantar fascia. Decreased pain after IASTM. Poor balance SLS level surface. Continue to progress R ankle/foot mobility, strength gait mechanics and functional mobility. 2 x week for 8 weeks [email or web address] Not available 02/08/2024 18:06:24 02/15/2024 02/15/2024 Challenged w/ SLS, increased px along medial arch. Improved px symptoms after IASTM to plantar fascia. Continue to progress R ankle/foot mobility, strength gait mechanics and functional mobility. 2 x week for 8 weeks [email or web address] Not available 02/16/2024 09:15:46 Plan of Treatment Reminders Order Date Submit Date Provider Last Modified By Organization Details Last Modified Time Details Appointments None record ed. Lab None record ed. Referral None record ed. Procedures None record ed. Surgeries None record ed. Imaging None record ed. Medication Orders None record ed. Patient Targets Encounter Date Encounter Id Patient Goals Patient Target Last Modified By Organization Details Last Modified Time 01/18/2024 [id number] 3 weeks of Right Ankle/Foot Strength motor strength: ankles: dorsiflexion: right 4+ (0-5) Not available Not available Not available 3 weeks of Right Ankle/Foot Strength motor strength: ankles: plantar flexion: right 4+ (0-5) Not available Not available Not available 3 weeks of Right Ankle/Foot Strength motor strength: ankles: inversion: right 4+ (0-5) Not available Not available Not available 3 weeks of Right Ankle/Foot Strength motor strength: ankles: eversion: right 4+ (0-5) Not available Not available Not available 3 weeks of Walking up or down stairs with step-to pattern Not available Not available Not available terminal manager goal of Walking up or down stairs performs without symptoms Not available Not available Not available 3 weeks of Ankle ROM Right dorsiflexion (knee ex) 5 deg Not available Not available Not available 3 weeks of Ankle ROM Right eversion 25 deg Not available Not available Not available 3 weeks of Ankle ROM Right plantarflexion 45 deg Not available Not available Not available 3 weeks of Ankle ROM Right inversion 40 deg Not available Not available Not available 3 weeks of Gait and Stance: on level surfaces Not available Not available Not available terminal manager goal of Gait and Stance: gait WNL Not available Not available Not available 3 weeks of Pain <5/10 Not available Not available Not available residential goal of Pain 0/10 Not available Not available Not available terminal manager goal of Squatting (ability to squat without symptoms) No problem: squatting not limited by symptoms Not available Not available Not available residential goal of Walking on uneven surfaces (level of support required when walking on uneven surfaces) No difficulty: able to walk without support Not available Not available Not available 01/25/2024 [id number] 3 weeks of Right Ankle/Foot Strength motor strength: ankles: dorsiflexion: right 4+ (0-5) Not available Not available Not available 3 weeks of Right Ankle/Foot Strength motor strength: ankles: plantar flexion: right 4+ (0-5) Not available Not available Not available 3 weeks of Right Ankle/Foot Strength motor strength: ankles: inversion: right 4+ (0-5) Not available Not available Not available 3 weeks of Right Ankle/Foot Strength motor strength: ankles: eversion: right 4+ (0-5) Not available Not available Not available 3 weeks of Walking up or down stairs with step-to pattern Not available Not available Not available terminal manager goal of Walking up or down stairs performs without symptoms Not available Not available Not available 3 weeks of Ankle ROM Right dorsiflexion (knee ex) 5 deg Not available Not available Not available 3 weeks of Ankle ROM Right eversion 25 deg Not available Not available Not available 3 weeks of Ankle ROM Right plantarflexion 45 deg Not available Not available Not available 3 weeks of Ankle ROM Right inversion 40 deg Not available Not available Not available 3 weeks of Gait and Stance: on level surfaces Not available Not available Not available terminal manager goal of Gait and Stance: gait WNL Not available Not available Not available 3 weeks of Pain <5/10 Not available Not available Not available terminal manager goal of Pain 0/10 Not available Not available Not available residential goal of Squatting (ability to squat without symptoms) No problem: squatting not limited by symptoms Not available Not available Not available terminal manager goal of Walking on uneven surfaces (level of support required when walking on uneven surfaces) No difficulty: able to walk without support Not available Not available Not available Patient InstructionsNo instructions recorded. Reason for Referral None Reported. Results Created Date Observation Date Name Description Value Unit Range Abnormal Flag Note LastModifiedBy Organization Detail LastModifiedTime 06/01/20 24 05/13/2023 imagi ng/di agnos tic resul t No observ ation record ed. [email or web address] Not Available 05/05 04:40:16 06/01/20 24 05/13/2023 imagi ng/di agnos tic resul t No observ ation record ed. [email or web address] Not Available 05/05 04:40:17 Result Notes None recorded. Procedures Surgical History Date Name Laterality Status Provider Name and Address Organization Details Recorded Time 4 21465 Therapeutic Exercise (1:1) completed Misael Lemus DPT [address], [place], [address], [facility] 02/16/2024 09:08:10 4 73286: Manual therapy completed Misael Lemus DPT [address], [place], [address], [facility] 02/16/2024 09:08:10 4 24412 Therapeutic Exercise (1:1) completed Kyle Stanley, DIE CUT OPERATOR [address], [place], [address], [facility] 02/08/2024 18:02:19 4 49606: Manual therapy completed Kyle Stanley, DIE CUT OPERATOR [address], [place], [address], [facility] 02/08/2024 18:02:19 4 60899 Therapeutic Exercise (1:1) completed Kyle Stanley, DIE CUT OPERATOR [address], [place], [address], [facility] 01/25/2024 20:03:09 4 63588: Manual therapy completed Kyle Stanley, DIE CUT OPERATOR [address], [place], [address], [facility] 01/25/2024 20:03:25 4 25766 Therapeutic Exercise (1:1) completed Misael Lemus DPT [address], [place], [address], [facility] 01/19/2024 10:32:27 4 64774: Moderate complexity PT eval completed Misael Lemus DPT [address], [place], [address], [facility] 01/19/2024 10:32:47 Imaging Results Imaging Date Name Status LastModified by Organiz ation Details LastModified Time 05/13/2023 imaging/diag nostic result completed Information not available 06/01/2024 04:40:16 05/13/2023 imaging/diag nostic result completed Information not available 06/01/2024 04:40:17 Procedure Notes None recorded. Medical Equipment None Reported. Medications Name Sig Start Date Stop Date Status Note LastModified by Organization Details LastModified Time meloxicam 15 mg tablet TAKE 1 TABLET BY MOUTH EVERY DAY WITH FOOD NEEDED FOR PAIN active Not Available Not Available No t Available acetaminoph en 500 mg tablet TAKE 2 TABLETS BY MOUTH EVERY 8 HOURS NEEDED FOR PAIN active Not Available Not Available No t Available levothyroxi ne 25 mcg tablet active Not Available Not Available Not Available aspirin 325 mg tablet,jay yed release TAKE 1 TABLET BY MOUTH DAILY. START THE DAY AFTER SURGERY active Not Available Not Available No t Available clotrimazol e-betametha sone 1 %-0.05 % topical cream APPLY TOPICALLY TO THE AFFECTED AREA TWICE DAILY FOR 2 WEEKS active Not Available Not Available No t Available methylpredn isolone 4 mg tablets in a dose pack FOLLOW PACKAGE DIRECTION S active Not Available Not Available No t Available oxycodone 5 mg tablet TAKE 1 TABLET BY MOUTH EVERY 4 TO 6 HOURS NEEDED FOR PAIN. DO NOT DRIVE WHILE TAKING THIS MEDICATIO N active Not Available Not Available No t Available oxycodone HCl-oxycodo ne-ASA 1 every 4 - 6 hours as needed prn painDO NOT DRIVE WHILE TAKING THIS MEDICATIO N 10/04 completed Statu s: 'Disc ontin ued'; Not Available Not Available Not Available levothyroxi ne 25 mcg capsule TAKE 1 CAPSULE BY MOUTH DAILY active Not Available Not Available No t Available Vitals Date Recorded Body height Provider Name an d Address Organization Details Last Updated DateTime 02/07/2024 165.1 cm JULIANA Nicholas [facility] 02/07/2024 14:02:45 Social History None recorded. Functional Status None recorded. Mental Status None recorded. Family History Nothing Reported. Medical History No medical history recorded. Gynecological HistoryNo gynecological history recorded. Obstetrics History GPAL:G 0 P 0 0 0 0 Past Encounters Encounter ID Performer Location Encounter Start Date Encounter Closed Date Diagnosis/Indication Diagnosis SNOMED-CT Code Diagnosis ICD10 Code Diagnosis Note [id number] [facility] [address] [place] [address] 01/18/2024 16:00:38 01/18/2024 16:36:04 Tendinitis of right posterior tibial tendon 8605472911 40271 M76.866 [id number] Misael Lemus DPT [facility] [address] [place] [address] 01/25/2024 16:27:34 01/25/2024 18:05:08 Tendinitis of right posterior tibial tendon [id number] 82792 M76.765 [id number] Myra Del Cid PA-C [facility] [address] [place] [address] 02/07/2024 13:51:17 03/01/2024 09:16:42 Accessory right tarsal navicular bone [id number] Q66.89 [id number] Misael Lemus DPT [facility] [address] [place] [address] 02/08/2024 15:51:04 02/08/2024 17:35:37 Tendinitis of right posterior tibial tendon [id number] 80029 M76.411 [id number] Misael Lemus DPT [facility] [address] [place] [address] 02/15/2024 15:21:08 02/15/2024 16:02:43 Tendinitis of right posterior tibial tendon [id number] 57192 M76.821 Health Concerns Section Related Observation LastModified by Organization Detai ls LastModified Time None Recorded Concern Status LastModified by Organization Details LastModified Time None Recorded Advance Directives Directive None Recorded Payers Encounter Date Sequence Insurance Name Policy Number Policy Cullen Covered Member ID Cullen Member ID Guarantor Name 01/18/2024 1 [facility] [employer] (POS) [id number] Rosita Sevilla [id number] Rosita Sevilla 01/25/2024 1 [facility] [employer] (POS) [id number] Rosita Sevilla [id number] Rosita Sevilla 02/08/2024 1 [facility] [employer] (POS) [id number] Rosita Sevilla [id number] Rosita Sevilla 02/15/2024 1 [facility] [employer] (POS) [id number] Rosita Sevilla [id number] Rosita Sevilla Notes Date Note Type Note Provider Name and Address Organization Details Recorded Time 01/18/2024 text/html AnkleReported bypatient.Location: right; medial; plantar Quality:aching; burning; sharp Severity:pain level 3/10; worst pain 5/10; not changing Timing:constant Duration:continuous since onset Aggravating Factors:standing; walking; carrying; weightbearing; upstairs; downstairs Alleviating Factors:sitting; ice; elevation; NSAIDs Associated Symptoms:weakness;s welling;tender to touch Previous Surgery:surgical procedure:; date:; Modified kidner procedure 08/19/23 28 y/o female referred to PT for ongoing R ankle px/foot px after modified kidner procedure performed on 08/19/23, pt is now 5 mo. /o. Pt reports she has been experiencing a lot of pulling and ripping feeling on bottom of foot when walking, especially first thing in morning. Notes occasional medial sided ankle px and top of foot px when standing for longer then 15 minutes at a time. Pt reports she continues to have a difficulty time negotiating stairs, standing and ambulating for prolonged periods. Notes she has been unable to return to running/jogging, hopping or jumping. Symptoms consistent w/ plantar fasciitis and posterior tibial tendonitis. Most limited in DF at this time. Fair R ankle strength at this time. Pt will benefit from skilled PT to improve R ankle ROM, R LE flexibility, strength/stability and overall functional mobility. Misael Lemus, DPT [address], [place], [address], [facility] 01/19/2024 10:37:02 01/25/2024 text/html Pt reports pain along plantar fascia. Feels sharp pain after walking or standing too long. Kyle Stanley, DIE CUT OPERATOR [address], [place], [address], [facility] 01/25/2024 20:07:25 02/07/2024 text/html I am seeing this patient under the supervision of Dr. Louis, who was available but who did not see the patient. HPI: Patient is a 28-year-old female presenting today about 6 months status post right modified Kidner procedure. She overall feels that she is doing better and improving. Her pain is better than it was preoperatively. Has been ambulating in regular shoes. She complains of pain in the plantar aspect of her hallux MTP joint over her sesamoids that is worse in the morning. She had this pain on her last visit. She has been working with physical therapy. Denies any interval trauma. Denies any fevers, chills, or paresthesias. PFMSH, Meds and ROS reviewed, updated and signed by me, and is located in the patient's chart.PHYSICAL EXAMINATION: The patient is well appearing and in no apparent distress. Alert and oriented x 3. Examination of her right foot and ankle reveals symmetric baseline pes planus alignment. No evidence of edema, erythema, warmth, or ecchymosis. Incision is well healed. She has good ankle range of motion. Tender to palpation over the sesamoid complex. Able to invert her hindfoot against resistance. Calf soft, nontender. Sensation intact to light touch in the right lower extremity. IMPRESSION: 6 months status post surgery as above PLAN: Discussed the findings and situation with the patient today. She seems to be doing better overall. She will continue working with physical therapy. She was given a prescription for a sesamoid sleeve. She may increase activities as tolerated. Happy to see her back as needed. Call with questions or concerns. Myra Del Cid PA-C [address] [facility], [place], [address], [facility] 02/07/2024 15:08:58 02/08/2024 text/html Pt reports feeli ng good after LV. Decreased pain at rest but still gets burning pain that gets tp 8/10 if standing or walking too long. Kyle Stanley, DIE CUT OPERATOR [address], [place], [address], [facility] 02/08/2024 18:09:08 02/15/2024 text/html Pt reports 6/10 px coming in today. Notes IASTM helped comfort in foot after last session. Misael Lemus, DPT [address], [place], [address], [facility] 02/16/2024 09:15:57 OBGyn Episode No OBEpisode recorded.
--- OUTSIDE RECORDS SUMMARY | 2025-01-21 09:53 | XMS_ITS | Clinical Summary ---
Author Organization [facility] Address [address] [place] [address] Phone Care Team Providers Care Hostess Cashier Name Role Phone Sadie Mitchell MD Primary Care Provider Allergies No known active allergies Medications vitamin iron fum-folic acid 27-0.8 mg per tablet Take 1 tablet by mouth 1 (one) time each day. 90 tablet 3 12/03/2024 12/04/19 26 Active levothyroxine (Synthroid) 50 mcg tabletIndication s:hypothyroidism Take 1 tablet (50 mcg total) by mouth 1 (one) time each day before breakfast. Active aspirin 81 mg EC tabletIndication s:Encounter for supervision of other normal in second trimester Take 2 tablets (162 mg total) by mouth 1 (one) time each day. 60 tablet 6 12/06/2024 12/07/19 26 Active Active Problems Problem Noted Date Diagnosed Date Pap smear for cervical cancer screening 12/07/19 25 Overview (12/06/2024): 7- WNL Obesity, morbid ([facility] V24, [facility] V28) 12/06 Overview (12/06/2024): HgbA1C and 1 hour GTT at initial labs ASA 162mg at 12 weeks until delivery Detailed anatomy ultrasound Repeat GTT 24-28 weeks if early is normal Pre-preg BMI 35-39.9: NST weekly at 37 weeks Pre-preg BMI >40: NST weekly at 34 weeks Pre-preg BMI >45: NST weekly at 32 weeks Growth US at 32 and 36 weeks for BMI >40 BMI of 50 by 28wks transfer to [facility] DVT prophylaxis- Lovenox if CS and BMI >35 Encounter for supervision of other normal , second trimester 12/06/2024 Overview (01/15/2025): 1. [facility] site: [facility] ([facility]): [address] [place] [id number] ([phone]) 2. Delivery site: [facility] 3. Mobile Mommas: 4. Dating criteria: LMP confirmed by u/s 5. Blood type: B-Positive 6. Genetic screening: Date: Result: Panorama: Ordered low risk male Horizon: Negative x 14 Nuchal: Too late to be ordered Survey: MSAFP: 6. GBS: Date: 7. FOB name: Kalpesh Abbott [birth year] 8. Plans A. Epidural or other pain management - B. Labor support identified - C. Tdap - Date: Flu - Date: D. Breast or Bottle feed: E. Baby's name - F. Circumcision - 9. Hospital Course: Family history of Down syndrome 12/06/2024 Overview (12/26/2024): Fobs grandson born with down syndrome and heart condition that isnt compatible with life they are going to pull the plug [facility] Disease Adult hypothyroidism 12/03/2024 Overview (12/06/2024): 12/06/2024 pt self d/c levothyroxine in dec when she found out she was . Yesterday she notified her pcp of and they ordered lab work for her to complete. She did restart her levothyroxine 50mcg daily earlier this week. Estimated Date of Delivery Comme nts Yes 06/04/2025 Based on last me nstrual period of 08/28/2024 (Exact Date) Encounters Date Type Department Care Team Description 12/26/2024 3:00 PM EDT Initial Obstetrics & Gynecology [address] [phone] Karen Haynes CNM GA: 17w1d 12/06/2024 2:00 PM EST Clinical Support Obstetrics & Gynecology [address] [phone] Encounter for supervision of other normal in second trimester (Primary Dx); Adult hypothyroidism; Obesity, morbid ([facility] V24, [facility] V28); Encounter for supervision of other normal , second trimester; Family history of Down syndrome 12/03/2024 9:00 AM EST Office Visit Obstetrics & Gynecology - [address] [phone] Karen Haynes CNM test positive (Primary Dx); Adult hypothyroidism from Last 3 Months Immunizations Name Administration Dates Next Due Influenza trivalent, 0.5mL, preservative free (Fluarix; FluLaval; Fluzone) ages 6mo and older (Afluria) 3 years and older 07/11/2024 Surgical History Surgery Date Site/Laterality Comments ANKLE SURGERY 08/19/2023 Right right modified Kidner procedure Medical History Medical History Date Comments Thyroid disorder Obesity Depressive disorder Family History Medical History Relation Name Comments Hypertension Father Schizophrenia Father No Known Problems Half-Brother x1 deaf ? from meningitis, htn, diabetes Mother Diabetes Paternal Grandmother substance abuse Sister ADD / ADHD Son Relation Name Status Comments Father Half-Brother x1 Alive Mother Alive Paternal Grandmother Sister Alive Son Alive Social History Tobacco Use Types Packs/Day Years Used Date Smoking Tobacco: Never Smokeless Tobacco: Never Tobacco Cessation:Counseling Given: Not Answered Alcohol Use Standard Drinks/Week Comments Not Currently 0 (1 standard drink = 0.6 oz pur e alcohol) socially Estimated Date of Delivery Comme nts Yes 06/04/2025 Based on last me nstrual period of 08/28/2024 (Exact Date) Sex and Gender Information Value Date Recorded Sex Assigned at Not on file Legal Sex Female 8:51 AM EST Gender Identity Not on file Sexual Orientation Not on file Occupation Industry Job Start Date Job End Date [employer] Not on file Not on file Not on file Obstetrics History Para Term AB IAB SAB Ectopic Multiple Livin g Live Births 2 1 1 0 0 1 1 Date Outcome GA Total Labor Labor/2nd/3rd Weight Sex Type Anes PTL Martha A1 A5 Name Clin 012 Term 41w 0d 3572 g (126 oz) M Vag-S pont Epidur al Y Livin g Complications:None Delivery Location:[facility] Current Summary Episode Dates Number of Fetuses Estimated Date of Delivery 12/06/2024 - Present (01/21/2025) 06/04/2025 (set by Ann Gary RN on 12/06/2024 based on Last Menstrual Period on 08/28/2024 (Exact Date)) Dating Summary Based On [facility] [place] Diff Last Menstrual Period on 08/28/2024 (Exact Date) 06/04/2025 Working Ultrasound on 10/17/2024 06/02/2025 +2d GA:7w3d Alternate OSCAR Entry 06/04/2025 Same Comment:Date entered prior t o episode creation Vitals Pregravid Weight Height TWG (As of 01/21/2025) Pregrav id BMI 1.626 m (64 ) Notes Progress Notes - Initial Pre - 12/26/2024 - GA:17w1d 12/26/2024 - 17w1d - Karen Haynes CNM OB 12 week appt IP: S: Rosita is a 29 y.o. year old here for IP visit. Her is planned. She and the father of the baby are happy. Patient's last menstrual period was 08/28/2024 (exact date). She is certain of her LMP with regular cycles. is currently dated by LMP confirmed by 1st trimester ultrasound. She has no complaints at this time, She denies vaginal bleeding or cramping. Flu vaccine: not indicated at today's visit O: Blood pressure 111/70, weight 93.6 kg (206 lb 4.8 oz), last menstrual period 08/28/2024. See OB physical and labs. Vitals BP: 111/70 (p 80) Weight: 93.6 kg (206 lb 4.8 oz) No results found for: ABORH Lab Results Component Value Date RH Positive 12/06/2024 A: at 17w5d weeks gestation. 1. 17 weeks gestation of 2. Encounter for supervision of other normal in second trimester 3. Family history of Down syndrome 4. Screening for depression P: Anatomy scan ordered. Genprobe obtained today. Oriented to THoNE MG and anticipated course. Discussed collaborative practice and [facility] delivery. Reviewed healthy eating and normal weight gain in . Encouraged patient to push PO fluids. Counseled about warning signs of the second trimester and how to contact armor reconnaissance specialist provider. Discussed the benefits of breast feeding and strongly encouraged to consider this. Counseled regarding the diagnosis of anomalies. She was offered a referral to maternal medicine for PANORAMA testing. She completed the referral. RESULTS LOW RISK MALE RTO 4 weeks. The patient does not require anesthesia consult. This patient's VTE risk status is low. [place] Depression Scale: In the Past 7 Days I have been able to laugh and see the funny side of things.: As much as I always could I have looked forward with enjoyment to things.: As much as I ever did I have blamed myself unnecessarily when things went wrong.: No, never I have been anxious or worried for no good reason.: No, not at all I have felt scared or panicky for no good reason.: No, not at all Things have been getting on top of me.: No, I have been coping as well as ever I have been so unhappy that I have had difficulty sleeping.: Not at all I have felt sad or miserable.: No, not at all I have been so unhappy that I have been crying.: No, never The thought of harming myself has occurred to me.: Never [place] Depression Scale Total: 0 Karen Haynes CNM on 12/30/2024 at 2:36 PM EDT 12/26/2024 - w - [place] Pt here for IP Pap at [facility] 04/22/23 wnl/hpv neg EPDS: 0 Progress Notes - Clinical Telles pport - 12/06/2024 - GA:14w2d 12/06/2024 - 14w2d - Ann Taylor RN Rosita Abbott is a 29 y.o. old female at 14w2d. This is Planned. The patient feels happy about the . The FOB is supportive and happy. Patient's last menstrual period was 08/28/2024 (exact date). , which would make her currently 14w2d with an Estimated Date of Delivery: 06/04/25. She is certain of her date. An ultrasound has already been performed on 10-17-24, size is = to dates Patient has significant history of: 1 2012, obesity, hypothyroid OB Past Medical History: Have you had or do you currently have: Diabetes? No Hypertension? No Heart disease, Mitral valve Prolapse, or Rheumatic fever? No An Autoimmune disease such as Lupus or Rheumatoid Arthritis? No Epilepsy, Seizures, or Spells? No Migraine Headaches? No Stroke or loss of function or sensation? No Additional Questions: Have you ever been treated for anxiety and/or depression? Per pt when she was 14-15 yrs old for like a month Are you having problems with crying spells or loss of self-esteem? No Have you ever required psychiatric care? No Have you ever had hepatitis, liver disease or jaundice? No Have you ever been treated for blood clots in your veins, deep venous thrombosis, inflammation in the veins, thrombosis, phlebitis, pulmonary embolism or varicosities? No Have you had excessive bleeding after surgery or dental work? No Do you bleed more than other women after a cut or scratch? No Do you have a history of anemia? Yes, borderline and iron supplement Have you ever had Thyroid problems or taken Thyroid medications? Yes, pt touched based with her provider and will obtain lab work through their office for mgmt during preg Do you have any other Endocrine Problems (ie. PCOS)? No Have you ever been in a major accident or suffered serious trauma? No Within the last year, has anyone hit, slapped, kicked or otherwise hurt you? No In the last year, has anyone forced you to have sex when you didn't want to? No Do you feel safe at home? Yes Have you ever received a blood transfusion? No Would you refuse a blood transfusion if a doctor judged to be medically necessary? No Would you rather than receive a blood transfusion? No If you answered yes to the above questions, is this for mandaeism reasons? Do you know what your blood type is or if you are Rh Negative? B Pos Have you ever had abnormal antibodies in your blood? No Have you ever had asthma? No Have you every had Tuberculosis? No Have you ever had any breast problems? No Have you ever breast fed? < 4 weeks Have you ever had any gynecological surgical procedures such as cervical conization, LEEP procedure, Laser treatment, cryosurgery of the cervix or dilation and curettage, etc? No Have you had any other surgical procedures? Yes, right ankle Have you ever been hospitalized overnight for a non-surgical reason excluding normal delivery? No Have you ever had anesthesia complications? No Have you ever had an abnormal pap smear? No Do you have a history of abnormalties of the uterus? No Did your mother take YU or any other hormones when she was with you? No Did it take more than one year to become ? Yes Have you ever been evaluated or treated for infertility? No Is there a history of medical problems in your family which you feel might adversely affect your health or ? No Do you have any other problems we have not asked you about which you feel may be important for us to know for this ? No Do you currently have any of the following symptoms since your last menstrual period: Abdominal pain, blood in the stool or urine, chest pain, shortness of breath, coughing or vomiting up blood, your heart racing or skipping beats, nausea and/or vomiting, pain on urination, or vaginal discharge or vaginal bleeding? No OB Infection History: Do you object to being tested for Hepatitis B? No Do you object to being tested for HIV? No Do you feel that you are at high risk for coming contact with the AIDS virus? No Have you ever been treated for tuberculosis? No Have you ever received the BCG vaccine? No Have you ever had a positive skin test for Tuberculosis? No Do you live with someone who has Tuberculosis? No Have you ever been exposed to Tuberculosis? No Do you have Genital Herpes? No Does your partner have Genital Herpes? No Have you had a rash or viral illness since your last period? No Have you ever had Gonorrhea, Chlamydia, Syphilis, Venereal Warts, Trichomoniasis, Pelvic Inflammatory Disease (PID) or any other sexually transmitted disease? No Do you know if you are a Group B Streptococcus Carrier? No Did you have the Chicken Pox/Varicella? No Were you vaccinated against Chicken Pox/Varicella? Yes Have you had any other infectious diseases? No Rosita Abbott has been instructed on the following: random urine drug screening policy and an initial urine drug screen has been ordered., She has been counseled regarding avoiding hazards, litter boxes, smoking, drug and alcohol use during Rosita Abbott has also been informed of the reading teacher provider recommendation for first trimester nuchal lucency testing to be performed during her . Rosita Abbott has also been made aware of the time sensitive nature for this testing to be completed. . The patient now has a gestational age of 14w2d. The patient is beyond 14 weeks gestation and is too late for the first trimester screening. Ethnicity Based Genetic Testing has been reviewed and the [employer] information sheet has been provided to the patient in their After Visit Summary. The patient was also advised that genetic testing may not be covered by all insurances. The patients states that they understand this information. The patient states that she has not had the genetic screening for Horizon 14 done in the past during a previous . Results were n/a. The patient has agreed that she does want genetic testing for Horizon 14 The following Labs have been ordered: Obstetric Panel, HgA1c, Early Glucose Screen, HIV with verbal Consent, Urine Culture, UDS, Panorama with gender, and Horizon 14 panel She is aware that her insurance may or may not cover Panorama and/or Horizon 14 test and discussed colon only harris for test(s) - info given today in her after visit summary . She would like to proceed with testing. Electronically signed by: Ann Gary RN 12/06/24 2:44 PM EST Last Filed Vital Signs Vital Sign Reading Time Taken Comments Blood Pressure 111/70 12/26/2024 3:06 PM EDT p 8 0 Pulse 75 12/06/2024 2:40 PM EST Temperature - - Respiratory Rate - - Oxygen Saturation - - Inhaled Oxygen Concentration - - Weight 93.6 kg (206 lb 4.8 oz) 12/26/2024 3:06 P M EDT Height 162.6 cm (5' 4 ) 12/06/2024 2:40 PM EST Body Mass Index 35.41 12/06/2024 2:40 PM EST Plan of Treatment Upcoming Encounters Date Type Department Care Team (Late st Contact Info) Description 01/24/2025 2:45 PM EDT Routine Obstetrics & Gynecology - [address] [phone] Karen Haynes, [address] [address] 02/21/2025 1:00 PM EDT Routine Obstetrics & Gynecology [address] [phone] Karen Haynes [address] [address] 03/21/2025 1:00 PM EDT Routine Obstetrics & Gynecology [address] [phone] Kaern Haynes, [address] [address] 04/18/2025 1:00 PM EDT Routine Obstetrics & Gynecology [address] [phone] HaynesKaren horan, [address] [address] Health Maintenance Due Date Last Done Comments Hepatitis B Vaccines (1 of 3 - 19+ 3-dose series) 2012 IPV Vaccines (2 of 3 - Adult catch-up series) 11/08/2019 10/11/2019 COVID-19 Vaccine ( - 2023-2 5 season) 2024 Cholesterol Screening (Lipid Panel) 11/05/2024 Depression Screening 11/05/2024 Social Influencers of Health Screening 11/05/2024 Cervical Cancer Screening: P ap Smear 12/07/2027 12/06/2024, 05/02/2023 DTaP,Tdap,and Td Vaccines (2 - Td or Tdap) 10/11/2029 10/11/2019 Meningococcal ACWY Vaccine Aged Out 10/11/2019 N o longer eligible based on patient's age to complete this topic Influenza Vaccine Completed 07/11/2024 HIV Screening Completed 12/06/2024 Hepatitis C Screening Completed 12/06/2024 HIB Vaccines Aged Out No longer eligi ble based on patient's age to complete this topic HPV Vaccines Aged Out No longer eligi ble based on patient's age to complete this topic Hepatitis A Vaccines Aged Out No long er eligible based on patient's age to complete this topic Meningococcal B Vaccine Aged Out No l onger eligible based on patient's age to complete this topic Pneumococcal Vaccine: Pediatrics (0 to 5 Years) and At-Risk Patients (6 to 64 Years) Aged Out No longer eligible b ased on patient's age to complete this topic RSV Immunization Patients Under 20 months Aged Out No longer eligible b ased on patient's age to complete this topic Procedures Procedure Name Priority Date/Time Associated Diagnosis Comments GTT GESTATIONAL 1 HOUR Routine 9:18 AM EDT care, subsequent , second trimester Encounter for supervision of other normal in second trimester GLUCOSE TOLERANCE TEST, 1H GESTATION Routine 12/27/2024 9:18 AM EDT care, subsequent , second trimester Encounter for supervision of other normal in second trimester CHLAMYDIA TRACHOMATIS AND NEISSERIA GONORRHOEAE PCR Routine 12/26/2024 4:05 PM EDT 17 weeks gestation of Encounter for supervision of other normal in second trimester HORIZON 14, ALEXANDRA Routine 12/18/2024 4: 49 PM EDT PANORAMA TEST Routine 5 11:38 AM EDT DRUG ABUSE SCREEN EXPANDED WITH REFLEX CONFIRMATION, URINE Routine 12/06/2024 3:49 PM EST Encounter for supervision of other normal in second trimester CULTURE URINE Routine 12/06/2024 3:49 PM EST Encounter for supervision of other normal in second trimester CBC WITH AUTO DIFFERENTIAL Routine 12/06/2024 3:42 PM EST Encounter for supervision of other normal in second trimester HEMOGLOBIN A1C Routine 12/06/2024 3:42 PM EST Encounter for supervision of other normal in second trimester TYPE AND SCREEN Routine 12/06/2024 3:42 PM EST Encounter for supervision of other normal in second trimester TREPONEMA PALLIDUM ANTIBODY WITH REFLEX TO RPR AND PARTICLE AGGLUTINATION Routine 12/06/2024 3:42 PM EST Encounter for supervision of other normal in second trimester RUBELLA ANTIBODY IGG Routine 12/06/2024 3:42 PM EST Encounter for supervision of other normal in second trimester HIV 1, 2 ANTIBODY, P24 ANTIGEN WITH REFLEX TO DIFFERENTIATION Routine 12/06/2024 3:42 PM EST Encounter for supervision of other normal in second trimester HEPATITIS C ANTIBODY Routine 12/06/2024 3:42 PM EST Encounter for supervision of other normal in second trimester CBC AND DIFFERENTIAL Routine 12/06/2024 3:42 PM EST Encounter for supervision of other normal in second trimester HEPATITIS B SURFACE ANTIGEN WITH CONFIRMATION Routine 12/06/2024 3:42 PM EST Encounter for supervision of other normal in second trimester VARICELLA ZOSTER ANTIBODY IGG Routine 12/06/2024 3:42 PM EST Encounter for supervision of other normal in second trimester VENIPUNCTURE CHARGE Routine 12/06/2024 3 :41 PM EST care, subsequent , second trimester PAP SMEAR Routine 12/06/2024 10:35 AM EST from Last 3 Months Results * GTT gestational 1 hour (12/27/2024 9:18 AM EDT) Glucose, 1 HR Gestational 130 See Comment mg/dL LAB CHEMISTRY METHOD 12/27/2024 11:33 AM EDT [facility] Blood Venous blood specimen / Unknown Venipuncture / Unknown 12/27/2024 9:18 AM EDT 12/27/2024 10:54 AM EDT Narrative [facility] - 12/27/2024 11:33 AM EDT Gestational Diabetes Challenge Reference Range: 1 hour Glucose <140 mg/dL [facility] BLOOD ORDERABLES Final Re sult Performing Organization Address [facility]/ZIP Co de Phone Number [facility] [address] [place] [address], [place] [phone] * Chlamydia trachomatis and Neisseria gonorrhoeae molecular study (12/26/2024 4:05 PM EDT) Pathologist [facility] Neisseria gonorrhoeae PCR Negative Negative LAB MOLECULAR DIAGNOSTICS METHOD 12/27/2024 8:39 AM EDT [facility] Chlamydia trachomatis PCR Negative Negative LAB MOLECULAR DIAGNOSTICS METHOD 12/27/2024 8:39 AM EDT [facility] Swab Cervix uteri structure / Unknown Non-blood Collection / Unknown 12/26/2024 4:05 PM EDT 12/26/2024 4:12 PM EDT [facility] MICROBIOLOGY - GENERAL OR DERABLES Final Result Performing Organization Address [facility]/ZIP Co de Phone Number [facility] [address] [place] [address], [place] [phone] * Horizon 14 (12/18/2024 4:49 PM EDT) Blood Venous blood specimen / Unknown [facility] BLOOD ORDERABLES Final Re sult * Panorama test (12/13/2024 11:38 AM EDT) Blood Venous blood specimen / Unknown Historical Provider LAB BLOOD ORDERABLES Luz l Result * Drug abuse screen expanded with reflex confirmation, urine (12/06/2024 3:49 PM EST) Amphetamine Screen, Ur Negative Negative LAB CHEMISTRY METHOD 12/06/2024 5:00 PM EST [facility] Comment:Certain OTC medicati ons containing ephedrine, phenylephrine, pseudoephedrine and phenylpropanolamine can cause false positive results. Barbiturate Screen, Ur Negative Negative LAB CHEMISTRY METHOD 12/06/2024 5:00 PM EST [facility] Benzodiazepine Screen, Ur Negative Negative LAB CHEMISTRY METHOD 12/06/2024 5:00 PM EST [facility] Cocaine Screen, Ur Negative Negative LAB CHEMISTRY METHOD 12/06/2024 5:00 PM [facility] Opiate Screen, Ur Negative Negative LAB CHEMISTRY METHOD 12/06/2024 5:00 PM [facility] Cannabinoid (THC) Screen, Ur Negative Negative LAB CHEMISTRY METHOD 12/06/2024 5:00 PM [facility] Comment:Specimens from patie nts taking pantoprazole sodium (Protonix) have been shown to produce false positive results. Fentanyl, Ur Negative Negative LAB CHEMISTRY METHOD 12/06/2024 5:00 PM EST [facility] Oxycodone Screen, Ur Negative Negative LAB CHEMISTRY METHOD 12/06/2024 5:00 PM [facility] Urine Urine specimen obtained by clean catch procedure / Unknown Non-blood Collection / Unknown 12/06/2024 3:49 PM EST 12/06/2024 4:21 PM EST [facility] - 12/06/2024 5:00 PM EST Assay cutoffs: Amphetamines ? 1000 ng/mL Barbiturates ?200 ng/mL Benzodiazepines ?? 200 ng/mL Cocaine ? 300 ng/mL Fentanyl ?1 ng/mL Opiates ? 300 ng/mL Oxycodone ? 100 ng/mL THC ?50 ng/mL Semi-quantitative assay for screening purposes only. Unconfirmed screening result should not be used for non-medical purposes. *POSITIVE RESULTS ARE AUTOMATICALLY SENT FOR ALTERNATE METHOD CONFIRMATION* [facility] URINE ORDERABLES Final Re sult Performing Organization Address [facility] Co de Phone Number [facility] [address] [place] [address], [place] [phone] * Culture urine (12/06/2024 3:49 PM EST) [facility] Culture, Urine No growth 12/07/2024 10:16 AM EST [facility] Urine Urine specimen obtained by clean catch procedure / Unknown Non-blood Collection / Unknown 12/06/2024 3:49 PM EST 12/06/2024 4:21 PM EST [facility] MICROBIOLOGY - GENERAL OR DERABLES Final Result Performing Organization Address [facility] de Phone Number [facility] [address] [place] [address], [place] [phone] * Hepatitis C antibody (12/06/2024 3:42 PM EST) [facility] Hepatitis C Antibody Negative Negative LAB CHEMISTRY METHOD 12/06/2024 5:44 PM EST [facility] Blood Venous blood specimen / Unknown Venipuncture / Unknown 12/06/2024 3:42 PM EST 12/06/2024 4:20 PM EST [facility] LAB BLOOD ORDERABLES Final Re sult Performing Organization Address [facility] Co de Phone Number [facility] [address] [place] [address], [place] [phone] * HIV 1,2 antibody, p24 antigen with reflex to differentiation (12/06/2024 3:42 PM EST) [facility] HIV Combo AB/AG Negative Negative LAB CHEMISTRY METHOD 12/06/2024 5:45 PM EST [facility] Blood Venous blood specimen / Unknown Venipuncture / Unknown 12/06/2024 3:42 PM EST 12/06/2024 4:20 PM EST Narrative [facility] - 12/06/2024 5:45 PM EST This assay is a 4th generation assay allowing for earlier detection of HIV infection by detecting the presence of the HIV-1 p24 antigen as well as the traditional antibodies to HIV type 1 (including group O) and type 2. ??Use of a 4th generation assay is the current CDC recommendation for HIV screening. Karen Haynes [facility] BLOOD ORDERABLES Final Re sult Performing Organization Address [facility] Co de Phone Number [facility] [address] [place] [address], [place] [phone] * Hepatitis B surface antigen with reflex to confirmation (12/06/2024 3:42 PM EST) Hepatitis B Surface Ag Negative Negative LAB CHEMISTRY METHOD 12/06/2024 5:16 PM EST [facility] Blood Venous blood specimen / Unknown Venipuncture / Unknown 12/06/2024 3:42 PM EST 12/06/2024 4:20 PM EST Narrative [facility] - 12/06/2024 5:16 PM EST Over the counter supplements containing high doses of biotin may interfere with this assay. ??If interference is suspected, patients shoud be retested after refraining from biotin supplements for 72 hours. [facility] LAB BLOOD ORDERABLES Final Re sult Performing Organization Address [facility]/ZIP Co de Phone Number [facility] [address] [place] [address], [place] [phone] * Treponema pallidum antibody with reflex to RPR and particle agglutination (12/06/2024 3:42 PM EST) [facility] T. Pallidum Antibodies Negative Negative LAB CHEMISTRY METHOD 12/06/2024 5:16 PM EST [facility] Blood Venous blood specimen / Unknown Venipuncture / Unknown 12/06/2024 3:42 PM EST 12/06/2024 4:20 PM EST Karen CALDERA LAB BLOOD ORDERABLES Final Re sult [facility] [address] [place] [address], * (ABNORMAL) CBC auto differential (12/06/2024 3:42 PM EST) [facility] WBC 12.2(H) 4.8 - 10.8 K/mcL LAB HEMETOLOGY METHOD 12/06/2024 4:35 PM [facility] RBC 3.90 3.80 - 4.80 M/mcL LAB HEMETOLOGY METHOD 12/06/2024 4:35 PM [facility] Hemoglobin 11.9 11.5 - 16.0 g/dL LAB HEMETOLOGY METHOD 12/06/2024 4:35 PM [facility] Hematocrit 35.6 35.0 - 47.0 % LAB HEMETOLOGY METHOD 12/06/2024 4:35 PM [facility] MCV 90.6 79.0 - 98.0 FL LAB HEMETOLOGY METHOD 12/06/2024 4:35 PM [facility] MCH 30.3 27.0 - 32.0 pcg LAB HEMETOLOGY METHOD 12/06/2024 4:35 PM [facility] MCHC 33.4 32.0 - 37.0 g/dL LAB HEMETOLOGY METHOD 12/06/2024 4:35 PM [facility] RDW 13.0 11.0 - 15.0 % LAB HEMETOLOGY METHOD 12/06/2024 4:35 PM [facility] Platelets 265 130 - 400 K/mcL LAB HEMETOLOGY METHOD 12/06/2024 4:35 PM [facility] MPV 9.8 7.0 - 11.0 FL LAB HEMETOLOGY METHOD 12/06/2024 4:35 PM [facility] NRBC 0.0 <1.0 % LAB HEMETOLOGY METHOD 12/06/2024 4:35 PM [facility] NRBC Absolute 0.00 <0.10 K/mcL LAB HEMETOLOGY METHOD 12/06/2024 4:35 PM [facility] Neutrophils Relative 71.2 % LAB HEMETOLOGY METHOD 12/06/2024 4:35 PM [facility] Lymphocytes Relative 23.0 % LAB HEMETOLOGY METHOD 12/06/2024 4:35 PM [facility] Monocytes Relative 4.7 % LAB HEMETOLOGY METHOD 12/06/2024 4:35 PM [facility] Eosinophils Relative 0.3 % LAB HEMETOLOGY METHOD 12/06/2024 4:35 PM [facility] Basophils Relative 0.2 % LAB HEMETOLOGY METHOD 12/06/2024 4:35 PM [facility] Immature Granulocytes Relative 0.6 % LAB HEMETOLOGY METHOD 12/06/2024 4:35 PM [facility] Neutrophils Absolute 8.70(H) 1.50 - 7.00 K/mcL LAB HEMETOLOGY METHOD 12/06/2024 4:35 PM [facility] Lymphocytes Absolute 2.80 1.00 - 5.00 K/mcL LAB HEMETOLOGY METHOD 12/06/2024 4:35 PM [facility] Monocytes Absolute 0.57 0.20 - 1.00 K/mcL LAB HEMETOLOGY METHOD 12/06/2024 4:35 PM EST [facility] Eosinophils Absolute 0.04 0.00 - 0.50 K/[facility] LAB HEMETOLOGY METHOD 12/06/2024 4:35 PM EST [facility] Basophils Absolute 0.02 0.00 - 0.20 K/[facility] LAB HEMETOLOGY METHOD 12/06/2024 4:35 PM EST [facility] Immature Granulocytes Absolute 0.07(H) 0.00 - 0.03 K/[facility] LAB HEMETOLOGY METHOD 12/06/2024 4:35 PM EST [facility] Blood Venous blood specimen / Unknown Venipuncture / Unknown 12/06/2024 3:42 PM EST 12/06/2024 4:21 PM EST Karen Haynes [facility] BLOOD ORDERABLES Final Re sult [facility] [address] [place] [address], [place] [phone] * Rubella antibody IgG (12/06/2024 3:42 PM EST) Rubella IgG Quant 93.6 >=10.0 I Unit/mL LAB CHEMISTRY METHOD 12/06/2024 5:22 PM EST [facility] Rubella IgG Antibody Interp Positive Positive LAB CHEMISTRY METHOD 12/06/2024 5:22 PM EST [facility] Blood Venous blood specimen / Unknown Venipuncture / Unknown 12/06/2024 3:42 PM EST 12/06/2024 4:20 PM EST Karen Haynes [facility] BLOOD ORDERABLES Final Re sult [facility] [address] [place] [address], [place] [phone] * Type and screen (12/06/2024 3:42 PM EST) ABO Group B 12/06/2024 5:33 PM EST [facility] Rh Type Positive 12/06/2024 5:33 PM EST [facility] Antibody Screen Negative 12/06/2024 5:33 PM EST [facility] Blood Venous blood specimen / Unknown Venipuncture / Unknown 12/06/2024 3:42 PM EST 12/06/2024 4:21 PM EST Karen Haynes [facility] BLOOD BANK TEST ORDERABLE S Final Result [facility] [address] [place] [address], [place] [phone] * Varicella zoster antibody IgG (12/06/2024 3:42 PM EST) Pathologist [facility] Varicella IgG Positive Positive LAB CHEMISTRY METHOD 12/08/2024 7:57 AM EST [facility] Varicella Zoster IgG 5.72 >=1.00 S/CO LAB CHEMISTRY METHOD 12/08/2024 7:57 AM EST [facility] Blood Venous blood specimen / Unknown Venipuncture / Unknown 12/06/2024 3:42 PM EST 12/06/2024 4:20 PM EST Narrative [facility] - 12/08/2024 7:57 AM EST Interpretation >= 1.00 S/CO is considered to be consistent with Immunity Karen Haynes [facility] BLOOD ORDERABLES Final Re sult [facility] [address] [place] [address], * Hemoglobin A1c (12/06/2024 3:42 PM EST) Pathologist [facility] Hemoglobin A1C 5.4 <6.5 % LAB CHEMISTRY METHOD 12/06/2024 9:04 PM EST [facility] Mean Bld Glu Estim. 108 mg/dL LAB CHEMISTRY METHOD 12/06/2024 9:04 PM EST [facility] Blood Venous blood specimen / Unknown Venipuncture / Unknown 12/06/2024 3:42 PM EST 12/06/2024 4:21 PM EST [facility] LAB BLOOD ORDERABLES Final Re sult Performing Organization Address [facility]/ZIP Co de Phone Number [facility] [address] [place] [address], [place] [phone] * Venipuncture charge (12/06/2024 3:41 PM EST) Extra Tube Hold for add-ons. 12/06/2024 6:02 PM EST [facility] Comment:Auto resulted. Blood Venous blood specimen / Unknown Venipuncture / Unknown 12/06/2024 3:41 PM EST 12/06/2024 4:22 PM EST Karen Haynes [facility] BLOOD ORDERABLES Final Re sult Performing Organization Address [facility]/ZIP Co de Phone Number [facility] [address] [place] [address], [place] [phone] * Pap smear (12/06/2024 10:35 AM EST) Brushing/Spatula Cervix uteri structure / Unknown Historical Provider LAB CYTOLOGY ORDERABLES F inal Result from Last 3 Months Insurance [facility] on file Care Teams Hostess Cashier Relationship Specialty Start Date End Date Sadie Mitchell MD [address] [place] [address] PCP - General Internal Medicine 11/13/24
[2025-01-21 13:10] LABS: MANUAL DIFF FLAG NO
[2025-01-21 13:17] LABS: Basophils Percent Auto 0.3 % (0-2); Eosinophils Absolute Auto 0.1 X10*3/uL (0.0-0.4); Eosinophils Percent Auto 0.6 % (0-4); Hematocrit 32.9 % (37.0-47.0); Hemoglobin 11.1 g/dl (12.0-16.0); Imm Gran Abs Auto 0.14 X10*3/uL (0.00-0.03); Imm Gran Pct Auto 1.3 % (0.0-0.4); Lymphocytes Absolute Auto 2.3 X10*3/uL (1.2-4.9); Lymphocytes Percent Auto 20.6 % (20-40); Mean Corpuscular HGB Conc 33.7 g/dl (31.0-35.0); Mean Corpuscular Hemoglobin 30.7 pg (27.0-33.0); Mean Corpuscular Volume 91.1 fL (80.0-98.0); Mean Platelet Volume 10.1 fL (9.4-12.3); Monocytes Absolute Auto 0.4 X10*3/uL (0.1-1.2); Monocytes Percent Auto 3.9 % (2-11); Neutrophils Absolute Auto 8.2 x10*3/uL (2.0-8.3); Neutrophils Percent Auto 73.3 % (45-73); Platelet Count 258 X10*3/uL (160-400); Red Blood Count 3.61 X10*6/uL (4.20-5.50); White Blood Count 11.1 X10*3/uL (4.8-10.8)
[2025-01-21 13:23] LABS: Appearance Urine Clear; Color Urine Dark Yellow; Glucose Urine UA Negative (Negative); Leukocyte Esterase Urine Trace (Negative); Nitrite Urine Negative (Negative); Specific Gravity - Urine 1.025 (1.005-1.025); UMIC TRIGGER UACC YES; Urine Blood Negative (Negative); Urine Ketones Trace mg/dL (Negative); Urine Protein Negative (Neg-Trace)
[2025-01-21 13:29] LABS: Bacteria Urine 2+ (None Seen); Hyaline Casts Urine 0-2 /LPF (0-2); RBC Urine 0-2 /HPF (0-2); WBC Urine 0-5 /HPF (0-5)
[2025-01-21 13:34] LABS: Alanine Aminotransferase 18 U/L (0-31); Albumin Level 3.6 g/dL (3.5-5.0); Alkaline Phosphatase 68 U/L (39-117); Anion Gap 13 (12-20); Aspartate Amino Transferase 19 U/L (5-31); Bilirubin Total 0.3 mg/dL (0.0-1.0); Blood Urea Nitrogen 7 mg/dL (9-16); Calcium 9.1 mg/dL (8.4-10.2); Carbon Dioxide 23 mmol/L (22-29); Chloride 107 mmol/L (96-108); Cholesterol 191 mg/dL (<200); Estimated Glomerular Filt Rate > 60; Glucose Fasting 103 mg/dL (60-99); HDL Cholesterol 84 mg/dL (>40); LDL Cholesterol Calculated 74 mg/dL (<100); Potassium 3.6 mmol/L (3.3-5.1); Sodium 139 mmol/L (135-145); Total Protein 6.6 g/dL (6.5-8.0); Triglycerides 169 mg/dL (<150)
[2025-01-21 13:52] LABS: TSH reflex Free T4 2.35 uIU/mL (0.32-4.0)
== END 2025-01-21 09:51 | disposition home or self-care (01) ==
LOC: HO.HMGCLDS 09:50
PROVIDERS: PCP Nurse Practitioner Family; Visit Provider Nurse Practitioner Family
DX: E03.9 Hypothyroidism, unspecified (principal)
CPT/HCPCS: 36415; 80053; 80061; 81001; 84443; 85025

== ENCOUNTER 2025-01-22 15:54 | Outpatient (AMB) | payer OTHER, SELFPAY ==
[2025-01-22 15:55] VITALS: BP 110/80; PULSE 79; RESP 18; TEMP 36.9; O2SAT 98; BMI 34.6
--- NOTE | 2025-01-22 15:55 | A.OFFPC_ITS ---
Vital Signs 01/22/25 15:55 Height 5 ft 5 in Weight 208 lb BMI 34.6 BP 110/80 Blood Pressure Location Rt brachial Position Sitting Respiration 18 Pulse 79 Pulse Source Pulse Oximeter Temp 98.5 F Temp Source Oral Pulse Oximetry (%) 98 Oxygen Delivery Method Room Air Intake Visit Reasons: Annual PE Intake Note: Pt is here today for PE. Allergies No Known Allergies Allergy (Verified 01/22/25 16:58) Medication List - Last Reconciled 01/22/25 by ELAYNE Watson cholecalciferol (vitamin D3) 25 mcg PO DAILY clotrimazole-betamethasone 1-0.05 % 1 appl topical BID 2 weeks levothyroxine (Synthroid) 50 mcg PO DAILY metronidazole 0.75% 1 appl topical BID Tobacco use date assessed: 01/22/25 Dental Screening Dental Screen Date: 12/03/24 HPI Annual PE HPI Details History of Present Illness The patient is a 29-year-old female presenting for a physical examination. She is currently , with a due date of June 04, and primarily follows up with her child support investigator. 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 The patient has a history of mild anemia during her previous and reports it has recurred. She also reports a recent visit to a senior technical support analyst for eczema, which is resulting in some crusting near her bilateral nares and cheeks. Overall, she feels well despite these ongoing conditions. 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 - Musculoskeletal: Reports increased low er back pain. -denies any blood in stool, constipation , diarrhea, cp, sob, n/v, urinary issues, si or hi Physical Exam General: Cooperative, healthy appearing, comfortable, no acute distress and well developed, Orientation: Patient oriented x3 Limitations: No limitations Head: Normal to inspection Ears: Hearing grossly normal bilaterally Nose: Crusting noted closer to nares bilaterally Face and sinus: Cheeks with some crusting noted Eyes: Appearance normal, both eyes and all related structures Neck: Normal visual inspection and Yes full ROM Respiratory: Normal respiratory effort and able to speak in complete sentences. Clear to auscultation bilaterally Cardiovascular: Regular rate and rhythm. Normal S1 and S2 GI: Normal to inspection. Soft to palpation and nontender Skin: Eczema noted, no other rashes or lesions Neuro: Patient oriented x3 Extremities: Normal to inspection Results - Labs: Thyroid function normal, slight anemia noted Plan The plan is to manage the patient's -related symptoms and conditions associated with prolonged driving. Limiting driving sessions to thirty minutes maximum is advised to help manage her lower back pain. Given her history of anemia, I will continue monitoring her hemoglobin levels and conduct further testing as required to assess improvements or necessary interventions. For the noted eczema, follow-up with dermatological care is in place. Consideration for a temporary handicap placard was discussed to assist with mobility limitations during her . Discussion Notes I discussed with the patient her current symptoms and conditions related to , including her increased lower back pain. For her employment demands, we agreed to a half-hour limit on driving sessions to prevent exacerbation of pain. Her slight anemia was monitored, and assurance was given regarding ongoing observation and potential laboratory assessments during subsequent visits. We also reviewed her skin condition, with recommendations to continue her dermatology care, and considered issuing a handicap placard to ease mobility during this period. Patient expressed understanding and agreement with this management approach. Patient Instructions - Limit driving to no more than 30-minut e sessions. - Continue check-ups and monito r anemia with recommended labs. - Follow skincare regimen per dermatolog y recommendations. - Consider use of a handicap placard for ease of mobility if needed. [facility] Medical History Eczema Depressive disorder Delusional disorder Surgical History History of ankle surgery No pertinent past surgical history Family History Mother Diabetes mellitus Hypertension Father Hypertension Schizophrenia Social History Housing: House Alcohol intake: current Alcohol intake frequency: holidays/special occasions only Alcohol type: wine Patient Tobacco Use Status: Former Tobacco user e-Cigarette/Vaping Use: Never Used service: Yes ([employer]) Current occupational status: employed Cognitive needs: No Hearing needs: No Vision needs: Yes Questionnaire Thrive Questionnaire Date Thrive assessed: 12/03/24 I am a: Patient What is your living situation today?: I have a steady place to live Within the past 12 months, did the food you bought not last and you didn't have the money to get more?: Never true Within the past 12 months, did you worry whether your food would run out before you got money to buy more?: Never true Do you have trouble paying for medicines?: No Do you have trouble getting transportation to medical appointments?: No Do you have trouble paying your heating and electricity bill?: No Do you have trouble taking care of your child, family member or friend?: No Do you have trouble with day-to-day activities such as bathing, preparing meals, shopping, managing finances, etc.?: No Are you currently unemployed and looking for a job?: No Are you interested in more education?: Yes Please select the resources that you would like help with: Education Currently or been in a relationship where the following occur: No concerns reported THRIVE Score: 0 MADDY-7 AMB Questionnaire MADDY-7 Date MADDY - 7 assessed: 12/03/24 Source: Developed by Drs. Jaison Mcgowan, Marichuy Barahona, Lazaro Romero and colleagues, with an educational herbert from [email or web address]. Physical exam (Primary Care) Vital Signs: Last Vital Signs Temp 98.5 F 01/22/25 15:55 Pulse 79 01/22/25 15:55 Resp 18 01/22/25 15:55 BP 110/80 01/22/25 15:55 Pulse Ox 98 01/22/25 15:55 Oxygen Delivery Method Room Air 01/22/25 15:55 BMI result Body Mass Index 34.6 Tobacco/Smoking Status: Tobacco use Status Tobacco use date assessed 01/22/25 01/22/25 16:01 Patient Tobacco Use Status Former Tobacco user 01/22/25 15:57 e-Cigarette/Vaping Use Never Used 01/22/25 15:57 Thrive Assessment: Date of Thrive Assessment Date Thrive assessed 12/03/24 01/22/25 15:57 Currently or been in a relationship where the following occur: No concerns reported Coding Level of Care Code Est Pt Prev Care [id number](77144) Diagnoses Anemia D64.9 Physical exam Z00.00 Assessment & Plan Assessment & Plan (1) Anemia: Code(s): D64.9 - Anemia, unspecified Category: Medical (2) Physical exam: Code(s): Z00.00 - Encounter for general adult medical examination without abnormal findings Category: Medical Plan . Orders: Orders Reticulocyte Count Today D64.9 - Anemia, unspecified Complete Blood Count Auto Diff Today D64.9 - Anemia, unspecified Lactate Dehydrogenase Today D64.9 - Anemia, unspecified Ferritin Today D64.9 - Anemia, unspecified IRON PROFILE Today D64.9 - Anemia, unspecified Vitamin B12 and Folate Today D64.9 - Anemia, unspecified
--- OUTSIDE RECORDS SUMMARY | 2025-01-22 18:37 | XMS_ITS | Continuity of Care Document ---
Author Name [facility] Organization [facility] Care Team Providers Care Obiee Lead Developer Name Role Phone [facility] Unavailable Unavailable Problems Combined list of problems [...] Site Reaction Lot Number CVX Code Drug Clinical Trainer Status Comments Source poliovirus vaccine, inactivated 2019 [id number] sanofi pasteur complet ed polioviru s vaccine, inactivat ed 10/11/19 Given Ambulat ory Pharmac y adenovirus vaccine, live 2019 [id number] 143 Teva Pharmaceutica ls complet ed adenoviru s vaccine, live 10/11/19 Given Ambulat ory Pharmac y tetanus, diphtheria, acellular pertu is 2019 [id number] 115 GlaxoSmithKli ne complet ed tetanus, diphtheri a, acellular pertussis 10/11/19 Given Ambulat ory Pharmac y meningococcal A,C,Y,W-135 (MCV4P) 2019 [id number] 114 sanofi pasteur complet ed meningoco ccal A,C,Y,W-1 35 (MCV4P) 10/11/19 Given Ambulat ory Pharmac y poliovirus vaccine, inactivated 2019 [id number] 10 sanofi pasteur complet ed polioviru s vaccine, inactivat ed 10/11/19 Given Ambulat ory Pharmac y adenovirus vaccine, live 2019 [id number] 8 143 Teva Pharmaceutica ls complet ed adenoviru s vaccine, live 10/11/19 Given Ambulat ory Pharmac y tetanus, diphtheria, acellular pertu is 2019 [id number] 115 QonfKli ne complet ed tetanus, diphtheri a, acellular pertussis 10/11/19 Given Ambulat ory Pharmac y meningococcal A,C,Y,W-135 (MCV4P) 2019 [id number] 114 sanofi pasteur complet ed meningoco ccal A,C,Y,W-1 35 (MCV4P) 10/11/19 Given Ambulat ory Pharmac y poliovirus vaccine, inactivated 1 2019 [id number] 10 Sanofi Pasteur (PMC) complet ed polioviru s vaccine, inactivat ed DoD meningococcal polysaccharid e (groups A, C, Y and W-135) diphtheria toxoid conjugate vaccine (MCV4P) 1 2019 [id number] 114 Sanofi Pasteur (PMC) complet ed meningoco ccal polysacch aride (groups A, C, Y and W-135) diphtheri a toxoid conjugate vaccine (MCV4P) DoD tetanus toxoid, reduced diphtheria toxoid, and acellular pertu is vaccine, adsorbed 1 2019 [id number] 115 [facility] [place] complet ed tetanus toxoid, reduced diphtheri a toxoid, and acellular pertussis vaccine, adsorbed DoD Adenovirus, type 4 and type 7, live, oral 1 2019 [id number] 8 143 [employer] (BRR) complet ed Adenoviru s, type 4 and type 7, live, oral DoD Influenza, injectable, Madin Laila Canine Kidney, quadrivalent with preservative 1 2019 [id number] 186 Seqirus (SEQ) complet ed Influenza [...] ADM Date DC Date Status Disposition Source [facility](IEP Optometry ) OUTPATIENT [id number] LESLIE KERNS 10/12 Released w/o Limitations [employer](I EP Optomet ry) [employer](IEP Primary Care) OUTPATIENT [id number] Notes Entered by: LEROY NARANJO 24 Oct 2019 1128 ------- ------- ------- ------- -- IET LYN ARREOLA 10/24 Released w/o Limitations [employer](I EP Primary Care) [facility] Physical Therapy) OUTPATIENT [id number] Left Knee Pain DASHA IRIZARRY M 10/29 Released with Work/Duty Limitations [employer](T MC Physica l Therapy ) [facility] Ambulator y) OUTPATIENT [id number] Hip pain/ knee painX1 week VICTORINA, SUSHILADA R 11/02 Released with Work/Duty Limitations [employer](T MC Ambulat ory) [facility](C Ambulator y) OUTPATIENT [id number] hip f/u VICTORINA, LETRENDA R 11/05 Released with Work/Duty Limitations [employer](T MC Ambulat ory) [facility] Physical Therapy) OUTPATIENT [id number] Bilater al Lower Leg Swellin g / Pain TRAV IRIZARRYO M 11/13 Released with Work/Duty Limitations [employer](T MC Physica l Therapy ) [facility] Physical Therapy) OUTPATIENT [id number] Rehab Low Impact Cardio TRAV IRIZARRYO M 11/14 Released with Work/Duty Limitations [employer](T MC Physica l Therapy ) [facility] Physical Therapy) OUTPATIENT [id number] Bilater al Knee Rehab Low Impact Cardio JUAN C, DASHA M 11/14 Released with Work/Duty Limitations [facility] Physica l Therapy ) [facility] Ambulator y) OUTPATIENT [id number] INJUED KIM HEAD CONGEST KIRSTEN SHAH 11/16 Released with Work/Duty Limitations [facility](T Ambulat ory) [facility] Ambulator y) OUTPATIENT [id number] fx anthony/kne es f/u ISABELLA PRAJAPATI 11/22 Immediate Referral [facility] Ambulat ory) [facility] Ambulator y) OUTPATIENT [id number] f/u knee/Hi p,ankle DOLLY DORAN 12/16 Released with Work/Duty Limitations [facility](T Ambulat ory) [facility] Ambulator y) OUTPATIENT [id number] DOLLY DORAN 12/23 Released w/o Limitations [facility] Ambulat ory) [facility]([address]) OUTPATIENT [id number] Notes Entered by: RANI JACK 10 Jan 2020 0709 ------- ------- ------- ------- -- hip pain SCOTT MEJIA 01/09 Released w/o Limitations [facility]([address]) [facility]([address]) OUTPATIENT [id number] [phone] left hip pain LUIS POND 01/10 Released with Work/Duty Limitations [facility]([address]) [facility]([address]) OUTPATIENT [id number] [phone] MRI [facility] LUIS POND 01/21 Released with Work/Duty Limitations [facility]([address]) [facility]) TELE CONSULT [id number] Notes Entered by: Jose POND 25 Jan 2020 1456 ------- ------- ------- ------- -- Vitamin D deficie colton LUIS POND Teresita 01/24 [facility]) [facility]([address]) OUTPATIENT [id number] Hip Pain LUIS POND 02/27 Released with Work/Duty Limitations [facility] Primary [facility]) [facility]([address]) OUTPATIENT [id number] Hip Pain LUIS OPND Teresita 03/03 Released with Work/Duty Limitations [facility] Primary [facility]) [facility] Physical Therapy [place]) OUTPATIENT [id number] Notes Entered by: ANALI HACKETT 04 Mar 2020 0601 ------- ------- ------- ------- -- hip JAYMIE CORRALES 03/04 Released with Work/Duty Limitations [facility] Physica l Therapy [place]) Procedures Combined list of: 1) Procedures from Department of Veterans Affairs facilities going back up to thelast 18 months, not all VA non-surgical procedures are included; 2) All procedures from the Department of Defense facilities. Procedure Procedure Type Code Date Perfomer Comments Sourc e No data available for this section Ambulato ry Pharmacy CRUTCHES UNDERARM, OTHER THAN WOOD, ADJUSTABLE OR FIXED, PAIR, WITH PADS, TIPS AND HANDGRIPS [facility] THERAPEUTIC PROCEDURE(S), GROUP (2 OR MORE INDIVIDUALS) DoD THERAPEUTIC PROCEDURE(S), GROUP (2 OR MORE INDIVIDUALS) DoD THERAPEUTIC PROCEDURE(S), GROUP (2 OR MORE INDIVIDUALS) [facility] CRUTCHES UNDERARM, OTHER THAN WOOD, ADJUSTABLE OR FIXED, PAIR, WITH PADS, TIPS AND HANDGRIPS DoD THERAPEUTIC PROCEDURE, 1 OR MORE AREAS, EACH 15 MINUTES; THERAPEUTIC EXERCISES TO DEVELOP STRENGTH AND ENDURANCE, RANGE OF MOTION AND FLEXIBILITY [facility] INFLUENZA VIRUS VACCINE, QUADRIVALENT (IIV4), SPLIT VIRUS, PRESERVATIVE FREE, 0.5 ML DOSAGE, FOR INTRAMUSCULAR USE [facility] DETERMINATION OF REFRACTIVE STATE [facility] EAR MOLD/INSERT, NOT DISPOSABLE, ANY TYPE [facility] THERAPEUTIC ACTIVITIES, DIRECT (ONE-ON-ONE) PATIENT CONTACT (USE OF DYNAMIC ACTIVITIES TO IMPROVE FUNCTIONAL PERFORMANCE), EACH [address] [facility] WAIVER SERVICES; NOT OTHERWISE SPECIFIED (NOS) [facility] WAIVER SERVICES; NOT OTHERWISE SPECIFIED (NOS) [facility] WAIVER SERVICES; NOT OTHERWISE SPECIFIED (NOS) [facility] Ophthalmological New Patient Start Intermediate Level Care Ophthalmological New Patient Start Intermediate Level Care [address] [facility] Spectacles Services Fitting Monofocals (Not For Aphakia) [facility] Fitting Monofocals (Not For Aphakia) [address] [facility] Determination Of Refractive State Determination Of Refractive State [address] [facility] Immunization Administration One Vaccine Immunization Administration One Vaccine 42921 [facility] Immunization Administration Each Additional Vaccine Immunization Administration Each Additional Vaccine 49585 [facility] Vaccines Viral Polio, Inactivated (Salk) Vaccines Viral Polio, Inactivated (Salk) 39167 [facility] Tdap Vaccine Tdap Vaccine 47830 [facility] Immunization Admin Intranasal / Oral Each Additional Vaccine Immunization Admin Intranasal / Oral Each Additional Vaccine 89319 [facility] Vaccines Adenovirus Type 4 Live, For Oral Use Vaccines Adenovirus Type 4 Live, For Oral Use 40282 [facility] Vaccines Adenovirus Type 7 Live, For Oral Use Vaccines Adenovirus Type 7 Live, For Oral Use 44054 [facility] Exercises A isted Exercises For ROM Exercises Assisted Exercises For ROM 46152 DASHA IRIZARRY Physical Medicine - Group Physical Therapy jose antonio Physical Medicine - Group Physical Therapy Session 71047 DASHA IRIZARRY Crutches, underarm, other than wood, adjustable or fixed, pair, with pads, tips and handgrips DOLLY DORAN [facility] Waiver services; not otherwise specified (NOS) LUIS POND DoD PT A e ment Kinetic Training PT Assessment Kinetic Training [address] [facility] Social History Combined list of available smoking, tobacco, and other social history from Department of Defense and Veterans Affairs facilities. Social History Type Response Date Comment Sourc e Sex Representation Female (finding) 06/23/2020 Unknown Organization Sexual Orientation Ambula tory Pharmacy Gender identity Ambulator y Pharmacy This section is an empty social history section. [facility] Assessment and Plan Combined list of future care activities from Department of Defense and Veterans Affairs facilities (e.g., assessment and plan notes, appointments, orders, and referrals). Additional future care activities may be listed in the Plan of Care section. Result Assessment and Plan Date Source Assessment and Plan No data available for this section 01/22/2025 Ambulatory Pharmacy Functional Status Combined list of recent functional and cognitive assessments recorded at Department of Defense and Veterans Affairs (VA).VA Functional Howell Measurement (FIM) Scale: 1 = Total Assistance (Subject = 0% +), 2 = Maximal Assistance (Subject = 25% +), 3 = Moderate Assistance (Subject = 50% +), 4 = Minimal Assistance (Subject = 75% +), 5 = Supervision, 6 = Modified Howell (Device), 7 = Complete Howell (Timely, Safely). Assessment Date/Time Source Assessment Type Assessment Skill Assessment Score Assessment Details No data available for this section
--- OUTSIDE RECORDS SUMMARY | 2025-01-22 18:37 | XMS_ITS | Data Portability ---
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 goal of Gait and Stance: gait WNL Not available Not available Not available 3 weeks of Pain <5/10 Not available Not available Not available longterm goal of Pain 0/10 Not available Not available Not available 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 goal of Squatting (ability to squat without symptoms) No problem: squatting not limited by symptoms Not available Not available Not available longterm goal of Walking on uneven surfaces (level of support required when walking on uneven surfaces) No difficulty: able to walk without support Not available Not available Not available 01/25/2024 [id number] 3 weeks of Right Ankle/Foot Strength motor [...] pattern Not available Not available Not available 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 goal of Walking up or down stairs [...] surfaces Not available Not available Not available 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 goal of Gait and Stance: gait WNL Not available Not available Not available 3 weeks of Pain <5/10 Not available Not available Not available 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 02/16/2024 09:08:10 4 02682: Manual therapy completed Misael Lemus DPT [address], [place], [address], [facility] 02/16/2024 09:08:10 4 59274 Therapeutic Exercise (1:1) completed Kyle Stanley, FURNACE CARETAKER [address], [place], [address], [facility] 02/08/2024 18:02:19 4 23599: Manual therapy completed Kyle Stanley, FURNACE CARETAKER [address], [place], [address], [facility] 02/08/2024 18:02:19 4 63085 Therapeutic Exercise (1:1) completed Kyle Stanley, FURNACE CARETAKER [address], [place], [address], [facility] 01/25/2024 20:03:09 4 12790: Manual therapy completed Kyle Stanley, FURNACE CARETAKER [address], [place], [address], [facility] 01/25/2024 20:03:25 4 69682 Therapeutic Exercise (1:1) completed Misael Lemus DPT [address], [place], [address], [facility] 01/19/2024 10:32:27 4 00463: Moderate complexity PT eval completed Misael Lemus DPT [address], [place], [address], [facility] 01/19/2024 10:32:47 Imaging Results [...] Updated DateTime 02/07/2024 165.1 cm JULIANA Nicholas [facility] 02/07/2024 14:02:45 Social History None recorded. Functional Status None recorded. Mental Status None recorded. Family History Nothing Reported. Medical History No medical history recorded. Gynecological HistoryNo gynecological history recorded. Obstetrics History GPAL:G 0 P 0 0 0 0 Past Encounters Encounter ID Performer Location Encounter Start Date Encounter Closed Date Diagnosis/Indication Diagnosis SNOMED-CT Code Diagnosis ICD10 Code Diagnosis Note [id number] [facility] [address] [place] [address] 01/18/2024 16:00:38 01/18/2024 16:36:04 Tendinitis of right posterior tibial tendon 7205165251 61858 M76.834 [id number] Misael Lemus DPT [facility] [address] [place] [address] 01/25/2024 16:27:34 01/25/2024 18:05:08 Tendinitis of right posterior tibial tendon [id number] 65538 M76.191 [id number] Myra Del Cid PA-C [facility] [address] [place] [address] 02/07/2024 13:51:17 03/01/2024 09:16:42 Accessory right tarsal navicular bone [id number] Q66.89 [id number] Misael Lemus DPT [facility] [address] [place] [address] 02/08/2024 15:51:04 02/08/2024 17:35:37 Tendinitis of right posterior tibial tendon 5485901092 13530 M76.546 [id number] Misael Lemus DPT [facility] [address] [place] [address] 02/15/2024 15:21:08 02/15/2024 16:02:43 Tendinitis of right posterior tibial tendon 5846679423 63578 M76.821 Health Concerns Section Related Observation LastModified by Organization Detai ls LastModified Time None Recorded Concern Status LastModified by Organization Details LastModified Time None Recorded Advance Directives Directive None Recorded Payers Encounter Date Sequence Insurance Name Policy Number Policy Cullen Covered Member ID Cullen Member ID Guarantor Name 01/18/2024 1 [facility] (POS) [id number] Rosita Sevilla [id number] Rosita Sevilla 01/25/2024 1 [facility] (POS) [id number] Rosita Sevilla [id number] Rosita Sevilla 02/08/2024 1 [facility] PL[facility] (POS) [id number] oRsita Sevilla [id number] Rosita Sevilla 02/15/2024 1 [facility] (POS) [id number] Rosita Sevilla [id number] Rosita Sevilla Notes Date Note Type Note [...] overall functional mobility. Misael Lemus, DPT [email or web address], [place], [address], [facility] 01/19/2024 10:37:02 01/25/2024 text/html Pt reports pain along plantar fascia. Feels sharp pain after walking or standing too long. Kyle Stanley, FURNACE CARETAKER [address], [place], [address], [facility] 01/25/2024 20:07:25 02/07/2024 text/html I am [...] or concerns. Myra Del Cid PA-C [address] [facility], [place], [address], [facility] 02/07/2024 15:08:58 02/08/2024 text/html Pt reports feeli ng good after LV. Decreased pain at rest but still gets burning pain that gets tp 8/10 if standing or walking too long. Kyle Stanley, FURNACE CARETAKER [address], [place], [address], [facility] 02/08/2024 18:09:08 02/15/2024 text/html Pt reports 6/10 px coming in today. Notes IASTM helped comfort in foot after last session. Misael Lemus, DPT [address], [place], [address], [facility] 02/16/2024 09:15:57 OBGyn Episode No OBEpisode recorded.
--- OUTSIDE RECORDS SUMMARY | 2025-01-22 18:37 | XMS_ITS | Clinical Summary ---
Author Organization [facility] Address [address] [place] [address] Phone Care Team Providers Care Zipper Trimmer Name Role Phone Sadie Mitchell MD Primary [...] cervical cancer screening 12/07/19 25 Overview (12/06/2024): 7-21-23 WNL Obesity, morbid ([facility] V24, [facility] V28) 12/06 Overview (12/06/2024): HgbA1C and 1 [...] BMI of 50 by 28wks transfer to [facility] DVT prophylaxis- Lovenox if CS and BMI >35 Encounter for supervision of other normal , second trimester 12/06/2024 Overview (01/15/2025): 1. [place] site: [facility] ([facility]): [address] [place] [id number] ([phone]) 2. Delivery site: [facility] 3. Mobile Mommas: 4. Dating criteria: LMP [...] they are going to pull the plug [facility] Disease Adult hypothyroidism 12/03/2024 Overview (12/06/2024): 12/06/2024 [...] 3:00 PM EDT Initial Obstetrics & Gynecology [address] [phone] Karen Haynes CNM GA: 17w1d 12/06/2024 2:00 PM EST Clinical Support Obstetrics & Gynecology [address] [phone] Encounter for supervision of other normal in second trimester (Primary Dx); Adult hypothyroidism; Obesity, morbid ([facility] V24, [facility] V28); Encounter for supervision of other normal , second trimester; Family history of Down syndrome 12/03/2024 9:00 AM EST Office Visit Obstetrics & Gynecology - [address] [phone] Karen Haynes CNM test positive (Primary Dx); Adult hypothyroidism from Last 3 Months Immunizations Name Administration Dates Next Due Adenovirus 10/11/2019 IPV Inactivated polio (Ipol) 6wks and older 06/2020 Influenza trivalent, 0.5mL, preservative free (Fluarix; FluLaval; Fluzone) ages 6mo and older (Afluria) 3 years and older 07/11/2024 Meningococcal MCV4P 10/11/2019 Tdap Tetanus diptheria acell ular pertussis (Boostrix; Adacel) 7yo and older 10/11/2019 Surgical History Surgery Date Site/Laterality Comments ANKLE [...] Epidur al Y Livin g Complications:None Delivery Location:[facility] Current Summary Episode Dates Number of Fetuses Estimated Date of Delivery 12/06/2024 - Present (01/22/2025) 06/04/2025 (set by Ann Gary RN on 12/06/2024 based on Last Menstrual Period on 08/28/2024 (Exact Date)) Dating Summary Based On OSC[facility] [place] Diff Last Menstrual Period on 08/28/2024 (Exact Date) 06/04/2025 Working Ultrasound on 10/17/2024 06/02/2025 +2d GA:7w3d Alternate OSCAR Entry 06/04/2025 Same Comment:Date entered prior t o episode creation Vitals Pregravid Weight Height TWG (As of 01/22/2025) Pregrav id BMI 1.626 m (64 ) [...] the second trimester and how to contact organic extractions technician provider. Discussed the benefits of breast feeding and strongly encouraged to consider this. Counseled regarding the diagnosis of anomalies. She was offered a referral to maternal medicine for PANORAMA testing. She completed the referral. RESULTS LOW RISK MALE RTO 4 weeks. The patient does not require anesthesia consult. This patient's VTE risk status is low. Balko Depression Scale: In the Past 7 Days [...] harming myself has occurred to me.: Never Balko Depression Scale Total: 0 Karen Haynes CNM on 12/30/2024 at 2:36 PM EDT 12/26/2024 - w1d - [place] Pt here for [...] dates Patient has significant history of: 1 2011, obesity, hypothyroid OB Past Medical History: Have [...] to the above questions, is this for anabaptism reasons? 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 provider recommendation for first trimester nuchal lucency [...] Genetic Testing has been reviewed and the [employer] information sheet has been provided to the [...] 2:45 PM EDT Routine Obstetrics & Gynecology [address] [phone] Karen Haynes [address] [address] 02/21/2025 1:00 PM EDT Routine Obstetrics & Gynecology [address] [phone] Karen Haynes [address] [address] 03/21/2025 1:00 PM EDT Routine Obstetrics Gynecology [address] [phone] Karen Haynes, VERENICE[address] [address] 04/18/2025 1:00 PM EDT Routine Obstetrics Gynecology [address] [phone] Karen Haynes, [address] [address] Health Maintenance Due Date Last Done Comments Hepatitis B Vaccines (1 of 3 - 19+ 3-dose series) 2012 IPV Vaccines (2 of 3 - Adult catch-up series) 11/08/2019 10/11/2019 COVID-19 Vaccine (2023-2 5 season) 2024 Cholesterol Screening (Lipid Panel) [...] 4: 49 PM EDT PANORAMA TEST Routine 11:38 AM EDT DRUG ABUSE SCREEN EXPANDED [...] LAB CHEMISTRY METHOD 12/27/2024 11:33 AM EDT [facility]) [facility] Blood Venous blood specimen / Unknown Venipuncture / Unknown 12/27/2024 9:18 AM EDT 12/27/2024 10:54 AM EDT Narrative [facility] - 12/27/2024 11:33 AM EDT Gestational Diabetes Challenge Reference Range: 1 hour Glucose <140 mg/dL [facility] BLOOD ORDERABLES Final Re sult Performing Organization Address [facility] Co de Phone Number [facility] [address] [place] [address], [place] [phone] * Chlamydia trachomatis and Neisseria gonorrhoeae molecular study (12/26/2024 4:05 PM EDT) Neisseria gonorrhoeae PCR Negative Negative LAB MOLECULAR DIAGNOSTICS METHOD 12/27/2024 8:39 AM EDT [facility] Chlamydia trachomatis PCR Negative Negative LAB MOLECULAR DIAGNOSTICS METHOD 12/27/2024 8:39 AM EDT [facility] Swab Cervix uteri structure / Unknown Non-blood Collection / Unknown 12/26/2024 4:05 PM EDT 12/26/2024 4:12 PM EDT [facility] MICROBIOLOGY - GENERAL OR DERABLES Final Result Performing Organization Address [facility]/ZIP Co de Phone Number [facility] [address] [place] [address], [place] [phone] * Horizon 14 (12/18/2024 4:49 PM EDT) Blood Venous blood specimen / Unknown [facility] BLOOD ORDERABLES Final Re sult * Panorama test (12/13/2024 11:38 AM EDT) Blood Venous blood specimen / Unknown us Historical Provider LAB BLOOD ORDERABLES Luz l Result * Drug abuse screen expanded with reflex confirmation, urine (12/06/2024 3:49 PM EST) Amphetamine Screen, Ur Negative Negative LAB CHEMISTRY METHOD 12/06/2024 5:00 PM [facility] Comment:Certain OTC medicati ons containing ephedrine, phenylephrine, pseudoephedrine and phenylpropanolamine can cause false positive results. Barbiturate Screen, Ur Negative Negative LAB CHEMISTRY METHOD 12/06/2024 5:00 PM [facility] Benzodiazepine Screen, Ur Negative Negative LAB CHEMISTRY METHOD 12/06/2024 5:00 PM [facility] Cocaine Screen, Ur Negative Negative LAB CHEMISTRY METHOD 12/06/2024 5:00 PM [facility] Opiate Screen, Ur Negative Negative LAB CHEMISTRY METHOD 12/06/2024 5:00 PM [facility] Cannabinoid (THC) Screen, Ur Negative Negative LAB CHEMISTRY METHOD 12/06/2024 5:00 PM [facility] Comment:Specimens from patie nts taking pantoprazole sodium (Protonix) have been shown to produce false positive results. Fentanyl, Ur Negative Negative LAB CHEMISTRY METHOD 12/06/2024 5:00 PM [facility] Oxycodone Screen, Ur Negative Negative LAB CHEMISTRY METHOD 12/06/2024 5:00 PM [facility] Urine Urine specimen obtained by clean catch procedure / Unknown Non-blood Collection / Unknown 12/06/2024 3:49 PM EST 12/06/2024 4:21 PM EST [facility] - 12/06/2024 5:00 PM EST [...] ORDERABLES Final Re sult Performing Organization Address [facility] de Phone Number [facility] [address] [place] [address], [place] [phone] * Culture urine (12/06/2024 3:49 PM EST) [facility] Culture, Urine No growth 12/07/2024 10:16 AM EST [facility] Urine Urine specimen obtained by clean catch procedure / Unknown Non-blood Collection / Unknown 12/06/2024 3:49 PM EST 12/06/2024 4:21 PM EST [facility] MICROBIOLOGY - GENERAL OR DERABLES Final Result Performing Organization Address [facility] de Phone Number [facility] [address] [place] [address], [place] [phone] * Hepatitis C antibody (12/06/2024 3:42 PM EST) [facility] Hepatitis C Antibody Negative Negative LAB CHEMISTRY METHOD 12/06/2024 5:44 PM EST [facility] Blood Venous blood specimen / Unknown Venipuncture / Unknown 12/06/2024 3:42 PM EST 12/06/2024 4:20 PM EST [facility] BLOOD ORDERABLES Final Re sult Performing Organization Address [facility] de Phone Number [facility] [address] [place] [address], [place] [phone] * HIV 1,2 antibody, p24 antigen with reflex to differentiation (12/06/2024 3:42 PM EST) HIV Combo AB/AG Negative Negative LAB CHEMISTRY METHOD 12/06/2024 5:45 PM EST [facility] Blood Venous blood specimen / Unknown Venipuncture / Unknown 12/06/2024 3:42 PM EST 12/06/2024 4:20 PM EST [facility] - 12/06/2024 5:45 PM EST This assay is a 4th generation assay allowing for earlier detection of HIV infection by detecting the presence of the HIV-1 p24 antigen as well as the traditional antibodies to HIV type 1 (including group O) and type 2. ??Use of a 4th generation assay is the current CDC recommendation for HIV screening. Karen Haynes [facility] BLOOD ORDERABLES Final Re sult Performing Organization Address [facility]/ZIP Co de Phone Number [facility] [address] [place] [address], [place] [phone] * Hepatitis B surface antigen with reflex to confirmation (12/06/2024 3:42 PM EST) Pathologist [facility] Hepatitis B Surface Ag Negative Negative LAB CHEMISTRY METHOD 12/06/2024 5:16 PM EST [facility] Blood Venous blood specimen / Unknown Venipuncture / Unknown 12/06/2024 3:42 PM EST 12/06/2024 4:20 PM EST [facility] - 12/06/2024 5:16 PM EST Over the counter supplements containing high doses of biotin may interfere with this assay. ??If interference is suspected, patients shoud be retested after refraining from biotin supplements for 72 hours. [facility] BLOOD ORDERABLES Final Re sult Performing Organization Address City/[facility]/ZIP Co de Phone Number [facility] [address] [place] [address], [place] [phone] * Treponema pallidum antibody with reflex to RPR and particle agglutination (12/06/2024 3:42 PM EST) [facility] T. Pallidum Antibodies Negative Negative LAB CHEMISTRY METHOD 12/06/2024 5:16 PM EST [facility] Blood Venous blood specimen / Unknown Venipuncture / Unknown 12/06/2024 3:42 PM EST 12/06/2024 4:20 PM EST Karen Haynes [facility] BLOOD ORDERABLES Final Re sult [facility] [address] [place] [address], [place] [phone] * (ABNORMAL) CBC auto differential (12/06/2024 3:42 PM EST) [facility] WBC 12.2(H) 4.8 - 10.8 K/mcL LAB HEMETOLOGY METHOD 12/06/2024 4:35 PM [facility] RBC 3.90 3.80 - 4.80 M/mcL LAB HEMETOLOGY METHOD 12/06/2024 4:35 PM [facility] Hemoglobin 11.9 11.5 - 16.0 g/dL LAB HEMETOLOGY METHOD 12/06/2024 4:35 PM [facility] Hematocrit 35.6 35.0 - 47.0 % LAB HEMETOLOGY METHOD 12/06/2024 4:35 PM [facility] MCV 90.6 79.0 - 98.0 FL LAB HEMETOLOGY METHOD 12/06/2024 4:35 PM [facility] MCH 30.3 27.0 - 32.0 pcg LAB HEMETOLOGY METHOD 12/06/2024 4:35 PM [facility] MCHC 33.4 32.0 - 37.0 g/dL LAB HEMETOLOGY METHOD 12/06/2024 4:35 PM [facility] RDW 13.0 11.0 - 15.0 % LAB HEMETOLOGY METHOD 12/06/2024 4:35 PM [facility] Platelets 265 130 - 400 K/mcL LAB HEMETOLOGY METHOD 12/06/2024 4:35 PM [facility] MPV 9.8 7.0 - 11.0 FL LAB HEMETOLOGY METHOD 12/06/2024 4:35 PM [facility] NRBC 0.0 <1.0 % LAB HEMETOLOGY METHOD 12/06/2024 4:35 PM [facility] NRBC Absolute 0.00 <0.10 K/mcL LAB HEMETOLOGY METHOD 12/06/2024 4:35 PM [facility] Neutrophils Relative 71.2 % LAB HEMETOLOGY METHOD 12/06/2024 4:35 PM [facility] Lymphocytes Relative 23.0 % LAB HEMETOLOGY METHOD 12/06/2024 4:35 PM [facility] Monocytes Relative 4.7 % LAB HEMETOLOGY METHOD 12/06/2024 4:35 PM [facility] Eosinophils Relative 0.3 % LAB HEMETOLOGY METHOD 12/06/2024 4:35 PM [facility] Basophils Relative 0.2 % LAB HEMETOLOGY METHOD 12/06/2024 4:35 PM [facility] Immature Granulocytes Relative 0.6 % LAB HEMETOLOGY METHOD 12/06/2024 4:35 PM [facility] Neutrophils Absolute 8.70(H) 1.50 - 7.00 K/mcL LAB HEMETOLOGY METHOD 12/06/2024 4:35 PM [facility] Lymphocytes Absolute 2.80 1.00 - 5.00 K/[facility] LAB HEMETOLOGY METHOD 12/06/2024 4:35 PM EST [facility] Monocytes Absolute 0.57 0.20 - 1.00 K/[facility] LAB HEMETOLOGY METHOD 12/06/2024 4:35 PM EST [facility] Eosinophils Absolute 0.04 0.00 - 0.50 K/[facility] LAB HEMETOLOGY METHOD 12/06/2024 4:35 PM EST [facility] Basophils Absolute 0.02 0.00 - 0.20 K/[facility] LAB HEMETOLOGY METHOD 12/06/2024 4:35 PM EST [facility] Immature Granulocytes Absolute 0.07(H) 0.00 - 0.03 K/[facility] LAB HEMETOLOGY METHOD 12/06/2024 4:35 PM EST [facility] Blood Venous blood specimen / Unknown Venipuncture / Unknown 12/06/2024 3:42 PM EST 12/06/2024 4:21 PM EST Karen Haynes [facility] BLOOD ORDERABLES Final Re sult [facility] [address] [place] [address], [place] [phone] * Rubella antibody IgG (12/06/2024 3:42 PM EST) Rubella IgG Quant 93.6 >=10.0 I Unit/mL LAB CHEMISTRY METHOD 12/06/2024 5:22 PM EST [facility] Rubella IgG Antibody Interp Positive Positive LAB CHEMISTRY METHOD 12/06/2024 5:22 PM EST [facility] Blood Venous blood specimen / Unknown Venipuncture / Unknown 12/06/2024 3:42 PM EST 12/06/2024 4:20 PM EST Karen Haynes [facility] BLOOD ORDERABLES Final Re sult Performing Organization Address [facility] de Phone Number [facility] [address] [place] [address], [place] [phone] * Type and screen (12/06/2024 3:42 PM EST) ABO Group B 12/06/2024 5:33 PM EST [facility] Rh Type Positive 12/06/2024 5:33 PM EST [facility] Antibody Screen Negative 12/06/2024 5:33 PM EST [facility] Blood Venous blood specimen / Unknown Venipuncture / Unknown 12/06/2024 3:42 PM EST 12/06/2024 4:21 PM EST Karen Haynes [facility] BLOOD BANK TEST ORDERABLE S Final Result Performing Organization Address [facility] de Phone Number [facility] [address] [place] [address], [place] [phone] * Varicella zoster antibody IgG (12/06/2024 3:42 PM EST) Pathologist [facility] Varicella IgG Positive Positive LAB CHEMISTRY METHOD 12/08/2024 7:57 AM EST [facility] Varicella Zoster IgG 5.72 >=1.00 S/CO LAB CHEMISTRY METHOD 12/08/2024 7:57 AM EST [facility] Blood Venous blood specimen / Unknown Venipuncture / Unknown 12/06/2024 3:42 PM EST 12/06/2024 4:20 PM EST Narrative [facility] - 12/08/2024 7:57 AM EST Interpretation >= 1.00 S/CO is considered to be consistent with Immunity Karen Haynes [facility] BLOOD ORDERABLES Final Re sult Performing Organization Address [facility] Co de Phone Number [facility] [address] [place] [address], * Hemoglobin A1c (12/06/2024 3:42 PM EST) Hemoglobin A1C 5.4 <6.5 % LAB CHEMISTRY METHOD 12/06/2024 9:04 PM EST [facility] Mean Bld Glu Estim. 108 mg/dL LAB CHEMISTRY METHOD 12/06/2024 9:04 PM EST [facility] Blood Venous blood specimen / Unknown Venipuncture / Unknown 12/06/2024 3:42 PM EST 12/06/2024 4:21 PM EST [facility] BLOOD ORDERABLES Final Re sult Performing Organization Address [facility]/ZIP Co de Phone Number [facility] [address] [place] [address], * Venipuncture charge (12/06/2024 3:41 PM EST) Pathologist [facility] Extra Tube Hold for add-ons. 12/06/2024 6:02 PM EST [facility] Comment:Auto resulted. Blood Venous blood specimen / Unknown Venipuncture / Unknown 12/06/2024 3:41 PM EST 12/06/2024 4:22 PM EST [facility] BLOOD ORDERABLES Final Re sult [facility] [address] [place] [address], [place] [phone] * Pap smear (12/06/2024 10:35 AM EST) Brushing/Spatula Cervix uteri structure / Unknown Historical Provider LAB CYTOLOGY ORDERABLES F inal Result from Last 3 Months Insurance [facility] on file Care Teams Zipper Trimmer Relationship Specialty Start Date End Date Sadie Mitchell MD [address] [place] [address] PCP - General Internal Medicine 11/13/24
== END 2025-01-22 17:10 | disposition home or self-care (01) ==
LOC: HO.HMCC 15:55
PROVIDERS: PCP Nurse Practitioner Family; Visit Provider Nurse Practitioner Family
DX: D64.9 Anemia, unspecified (principal); Z00.00 Encounter for general adult medical examination without abnormal findings

== ENCOUNTER → 2025-01-22 15:54 | Outpatient (BNVA) | payer OTHER, SELFPAY | PROVIDERS: PCP Nurse Practitioner Family; Visit Provider Nurse Practitioner Family ==